=== PATIENT | male | born 1955 | race Caucasian/White ===

== ENCOUNTER 2018-01-17 15:27 | Emergency (ER) | payer BC, OTHER ==
[2018-01-17 15:44] VITALS: BP 151/85; PULSE 79; O2SAT 94
--- NOTE | 2018-01-17 16:11 | ERPHSYRPT ---
- History of Present Illness Time Seen by Provider: 01/17/18 15:54 Source: patient Exam Limitations: clinical condition Patient Subjective Stated Complaint: pt states yesterday he fell about 4 1/2 feet off back of truck and landed on back on hard surface, no loc. Triage Nursing Assessment: pt co pain to left side of head, walked in, alert, resp easy, skin w/d/p, pupils equal and reactive Physician History: PATIENT FELL 4 FEET OFF PLATFORM ONTO LOWER, BACK YESTERDAY AFTER SLIP AND FALL , ALSO STRUCK LEFT SIDE OF HEAD. DENIES LOSS OF CONSCIOUSNESS, NECK PAIN , NAUSEA, DIZZINESS, OR BLURRED VISION. Occurred: yesterday Reason for Fall: slipped Injuries/Pain Location: head, back Loss of Consciousness: no loss of consciousness Quality: aching Severity of Pain-Max: mild Modifying Factors: Improves With: nothing, cold therapy Associated Symptoms (Fall): other (LOW BACK PAIN) Allergies/Adverse Reactions: No Known Drug Allergies Allergy (Verified 01/17/18 15:44) Home Medications: Aspirin 81 gm Chew [Baby Aspirin 81 mg Chew] 81 mg PO DAILY 08/20/16 [ History] Diphenhydramine HCl [Benadryl Allergy] 75 mg PO DAILY 08/20/16 [History] Garlic 1 each PO DAILY 08/20/16 [History] Ibuprofen [IBUPROFEN 400 MG TABLET] 1 - 2 tablet PO Q6-8HPRN PRN 08/20/16 [ History] Losartan/Hydrochlorothiazide [Losartan-Hctz 100-12.5 mg Tab] 1 each PO DAILY 03/31 [History] Lovastatin 20 mg PO DAILY 08/20/16 [History] Melatonin 10 mg PO DAILY 08/20/16 [History] Meloxicam 7.5 mg [Mobic 7.5 MG] 7.5 mg PO BID 08/20/16 [History] [place]-3 Fatty Acids/Fish Oil [Fish Oil 1,000 mg Capsule] 1 ea DAILY 01/17/18 [ History] Trazodone HCl 100 mg DAILY 01/17/18 [History] Hx Influenza Vaccination/Date Given: Yes Hx Pneumococcal Vaccination/Date Given: No Immunizations Up to Date: Yes - Review of Systems Constitutional: No Fever, No Chills Eyes: No Symptoms Ears, Nose, & Throat: No Symptoms Respiratory: No Symptoms, No Cough, No Dyspnea Cardiac: No Symptoms, No Chest Pain, No Edema, No Syncope Abdominal/Gastrointestinal: No Symptoms, No Abdominal Pain, No Nausea, No Vomiting, No Diarrhea Genitourinary Symptoms: No Symptoms, No Dysuria Musculoskeletal: Injury, No Back Pain, No Neck Pain Skin: No Rash Neurological: Headache, No Dizziness, No Focal Weakness, No Sensory Changes Psychological: No Symptoms Endocrine: No Symptoms All Other Systems: Reviewed and Negative - Past Medical History Pertinent Past Medical History: Yes Neurological History: No Pertinent History ENT History: No Pertinent History Cardiac History: High Cholesterol, Hypertension Respiratory History: No Pertinent History Endocrine Medical History: No Pertinent History Musculoskeletal History: Arthritis GI Medical History: No Pertinent History History: No Pertinent History Psycho-Social History: No Pertinent History Male Reproductive Disorders: No Pertinent History - Past Surgical History Past Surgical History: Yes Neuro Surgical History: No Pertinent History Cardiac: No Pertinent History Respiratory: No Pertinent History Gastrointestinal: No Pertinent History Genitourinary: No Pertinent History Musculoskeletal: Other Male Surgical History: No Pertinent History Other Surgical History: shoulder surgery - Social History Smoking Status: Former smoker Exposure to second hand smoke: No Drug Use: none Patient Lives Alone: No - Nursing Vital Signs Nursing Vital Signs: Initial Vital Signs Temperature 98.7 F 01/17/18 15:37 Pulse Rate 79 01/17/18 15:37 Respiratory Rate 16 01/17/18 15:37 Blood Pressure 151/85 01/17/18 15:37 O2 Sat by Pulse Oximetry 94 L 01/17/18 15:37 Pain Scale Pain Intensity 2 - Protem Coma Score Best Eye Response (Rupert): (4) open spontaneously Best Verbal Response (Rupert): (5) oriented Best Motor Response (Rupert): (6) obeys commands Rupert Total: 15 - Physical Exam General Appearance: no apparent distress, alert Head Injury: contusions, swelling, tenderness (3CM X 2.5CM OVER LEFT SUPERIOR OCCIPITAL AREA) Eye Exam: PERRL/EOMI ENT Exam: airway nml Neck Exam: supple, normal inspection, tenderness (MIMIMAL TENDERNESS LEFT POSTERIOR ) Respiratory/Chest Exam: normal breath sounds, No chest tenderness, No respiratory distress Cardiovascular Exam: normal heart sounds, regular rate/rhythm Gastrointestinal Exam: soft, normal bowel sounds, No tenderness, No distention, No guarding, No ecchymosis Back Exam: normal inspection, vertebral tenderness (TENDERNESS LEFT PARASPINAL LUMBAR L-2-L-5, NO PELVIS ECCHYMOSIS) Extremity Exam: normal inspection, normal range of motion, pelvis stable, No deformities Peripheral Pulses: carotid (R): 2+, carotid (L): 2+, femoral (R): 2+, femoral (L ): 2+, dorsalis-pedis (R): 2+ Neurologic Exam: alert, oriented x 3, cooperative, sensation nml, No motor deficits Skin Exam: normal color, warm, dry SpO2 Interpretation: normal SpO2: 94 Oxygen Delivery: Room Air - Radiology Exams L-Spine X-ray Interpretation: Interpreted by me (DEGENERATIVE DISC DISEASE, NARROWING DISC SPACE L-5 TO S-1) - CT Exams Head CT Interpretation: Tele-radiologist Report, No/Intracranial Hemorrhag Cervical Spine CT Interpretation: Tele-radiologist Report, No Fracture Ordered Tests: Active Orders 24 hr Category Date Time Status CERVICAL SPINE WO CONTRAST [CT] Stat Exams 01/17/18 16:49 Taken HEAD WITHOUT CONTRAST [CT] Stat Exams 01/17/18 16:03 Taken LUMBAR COMPLETE (MIN 4 VIEWS) Stat Exams 01/17/18 16:05 Taken - Progress Counseled pt/family regarding: diagnosis, rad results - Departure Time of Disposition: 17:45 Departure Disposition: Home Clinical Impression: OCCIPITAL SCALP CONTUSION, CERVICAL STRAIN, LUMBAR STRAIN Condition: Stable Critical Care Time: No Referrals: SHEMAR CHIANG [Primary Care Provider] - Additional Instructions: TYLENOL OR MOTRIN NEEDED FOR PAIN. APPLY ICE OVER SCALP SWELLING EVERY 4 HOURS, DURATION 30 MINUTES FOR 24 HOURS. CONSULT YOUR PRIMARY CARE PROVIDER FOR FOLLOWUP.
--- NOTE | 2018-01-18 08:41 | XRAY ---
Indication: Pain following fall off truck. Multiple contiguous axial images obtained through the cervical spine. Sagittal and coronal reformatted images obtained. Comparison: None Axial images negative for acute fracture, suspicious bony lesions, or spinal canal stenosis. Mild/moderate C3-C7 degenerative endplate spurring. Sagittal and coronal reformatted images demonstrates lordotic straightening, positional versus paraspinal muscle spasm. C4-C7 degenerative disc space narrowing. No acute compression fracture, subluxation, or jumped facet. Normal-appearing craniocervical junction. Visualized noncontrasted soft tissues demonstrates minimal carotid calcifications. Lung apices clear. CT head reported separately. Impression: 1. Lordotic straightening, positional versus paraspinal spasm. 2. Negative acute fracture/subluxation. 3. Multilevel degenerative changes as detailed. Comment: Preliminary interpretation was made by [facility]. No discrepancy. CT DI 108.27
--- NOTE | 2018-01-18 08:43 | XRAY ---
Indication: Pain following fall off truck. Comparison: None 5 views of the lumbar spine demonstrates 5 lumbar vertebral segments with mild/moderate multilevel degenerative spondylosis greatest at the L5-S1 level. Also minimal dextroscoliosis centered at L2 and mild L4-S1 degenerative facet arthropathy, right greater than left. Minimal T11-L1 anterior wedging either developmental versus old injury. No acute fracture, subluxation, or soft tissue abnormalities. Impression: Nonacute lumbar spine with chronic features.
--- NOTE | 2018-01-18 08:44 | XRAY ---
Indication: Pain following fall off truck. Multiple contiguous axial images obtained through the head without contrast. Comparison: None Small left posterior parietal scalp hematoma near the vertex. Otherwise normal appearing brain parenchyma, ventricles, and bony calvarium. Visualized paranasal sinuses and mastoid air cells are clear. Impression: Left parietal scalp hematoma. No underlying fracture or acute intracranial abnormalities. Comment: Preliminary interpretation was made by [facility]. No discrepancy. CT DI 50.97
== END 2018-01-17 18:14 | disposition home or self-care (01) ==
LOC: ED 15:27
DX: S00.03XA Contusion of scalp, initial encounter (principal); S39.012A Strain of muscle, fascia and tendon of lower back, initial encounter; S16.1XXA Strain of muscle, fascia and tendon at neck level, initial encounter; W17.89XA Other fall from one level to another, initial encounter
CPT/HCPCS: 70450; 72110; 72125; 99284

== ENCOUNTER 2019-07-08 19:05 | Emergency (ER) | payer BC ==
--- NOTE | 2019-07-08 19:15 | ERPHSYRPT ---
- History of Present Illness Time Seen by Provider: 07/08/19 19:15 Historian: patient, family Exam Limitations: no limitations Physician History: 63 y/o white male presents central substernal cp. pain is sharp and nonradiating. pt has h/o pleurisy. family h/o cardiac issues but he does not. no cough. pt states gallbladder in place. no soa. no abd pain. had dry heaves. no diarrhea. Timing/Duration: today, sudden, worse Quality: sharpness, stabbing Location: substernal, central Chest Pain Radiation: no radiation Severity of Pain-Max: moderate Severity of Pain-Current: moderate Associated Symptoms: nausea, vomiting, No palpitations, No abdominal pain, No hurts to breathe Prior Chest Pain/Cardiac Workup: no prior cardiac workup Nitro Today/Relief: no nitro taken today Aspirin Treatment Today: 81 mg x 1 Allergies/Adverse Reactions: No Known Drug Allergies Allergy (Verified 07/08/19 19:15) Home Medications: Aspirin 81 gm Chew [Baby Aspirin 81 mg Chew] 81 mg PO DAILY 08/20/16 [ History] Diphenhydramine HCl [Benadryl Allergy] 75 mg PO DAILY 08/20/16 [History] Garlic 1 each PO DAILY 08/20/16 [History] Ibuprofen [IBUPROFEN 400 MG TABLET] 1 - 2 tablet PO Q6-8HPRN PRN 08/20/16 [ History] Losartan/Hydrochlorothiazide [Losartan-Hctz 100-12.5 mg Tab] 1 each PO DAILY 03/31 [History] Lovastatin 20 mg PO DAILY 08/20/16 [History] Melatonin 10 mg PO DAILY 08/20/16 [History] Meloxicam 7.5 mg [Mobic 7.5 MG] 7.5 mg PO BID 08/20/16 [History] [place]-3 Fatty Acids/Fish Oil [Fish Oil 1,000 mg Capsule] 1 ea DAILY 01/17/18 [ History] Trazodone HCl 100 mg DAILY 01/17/18 [History] Hx Influenza Vaccination/Date Given: Yes Hx Pneumococcal Vaccination/Date Given: No - Review of Systems Constitutional: No Symptoms Eyes: No Symptoms Ears, Nose, & Throat: No Symptoms Respiratory: No Symptoms Cardiac: Chest Pain Abdominal/Gastrointestinal: Nausea, Vomiting, No Abdominal Pain, No Diarrhea Genitourinary Symptoms: No Symptoms Musculoskeletal: No Symptoms Skin: No Symptoms Neurological: No Symptoms Psychological: No Symptoms Endocrine: No Symptoms Hematologic/Lymphatic: No Symptoms Immunological/Allergic: No Symptoms All Other Systems: Reviewed and Negative - Past Medical History Pertinent Past Medical History: Yes Neurological History: No Pertinent History ENT History: No Pertinent History Cardiac History: High Cholesterol, Hypertension Respiratory History: No Pertinent History Endocrine Medical History: No Pertinent History Musculoskeletal History: Arthritis GI Medical History: No Pertinent History History: No Pertinent History Psycho-Social History: No Pertinent History Male Reproductive Disorders: No Pertinent History - Past Surgical History Past Surgical History: Yes Neuro Surgical History: No Pertinent History Cardiac: No Pertinent History Respiratory: No Pertinent History Gastrointestinal: No Pertinent History Genitourinary: No Pertinent History Musculoskeletal: Other Male Surgical History: No Pertinent History Other Surgical History: shoulder surgery - Social History Smoking Status: Former smoker Exposure to second hand smoke: No Drug Use: none Patient Lives Alone: No - Nursing Vital Signs Nursing Vital Signs: Initial Vital Signs Temperature 98.2 F 07/08/19 19:16 Pulse Rate 72 07/08/19 19:16 Respiratory Rate 20 07/08/19 19:16 Blood Pressure 166/84 07/08/19 19:16 O2 Sat by Pulse Oximetry 98 07/08/19 19:16 Pain Scale Pain Intensity 8 - Physical Exam General Appearance: mild distress, alert, anxiety Eye Exam: PERRL/EOMI, eyes nml inspection Ears, Nose, Throat Exam: normal ENT inspection, moist mucous membranes Neck Exam: normal inspection, non-tender, supple, full range of motion Respiratory Exam: normal breath sounds, chest tenderness, lungs clear, airway intact, No respiratory distress Cardiovascular Exam: regular rate/rhythm, normal heart sounds, normal peripheral pulses Gastrointestinal/Abdomen Exam: soft, normal bowel sounds, No tenderness Rectal Exam: not done Back Exam: normal inspection, normal range of motion, No CVA tenderness, No vertebral tenderness Extremity Exam: normal inspection, normal range of motion, pelvis stable Neurologic Exam: alert, oriented x 3, cooperative, dry food products mixer II-XII nml as tested Skin Exam: normal color, warm, dry Lymphatic Exam: No adenopathy SpO2 Interpretation: normal O2 Delivery: Room Air - Course Nursing assessment & vital signs reviewed: Yes EKG Interpreted by Me: RATE (67), Sinus Rhythm, NORMAL AXIS, NORMAL INTERVALS, NORMAL QRS, Non-specific ST Changes, Other (no comparison ekg) Ordered Tests: Active Orders 24 hr Category Date Time Status Economics Professor STAT Care 07/08/19 19:16 Active EKG-ER Only STAT Care 07/08/19 19:15 Active IV Insertion STAT Care 07/08/19 19:15 Active Pulse Oximetry (ED) STAT Care 07/08/19 19:15 Active CHEST 1 VIEW (PORTABLE) Stat Exams 07/08/19 19:16 Taken CHEST WITH CONTRAST [CT] Stat Exams 07/08/19 20:22 Taken BLOOD CULTURE Stat Lab 07/08/19 21:42 Received CBC W DIFF Stat Lab 07/08/19 19:43 Completed CMP Stat Lab 07/08/19 19:43 Completed D-DIMER QUANTITATION Stat Lab 07/08/19 19:43 Completed NT PRO BNP Stat Lab 07/08/19 19:43 Completed PROTIME WITH INR Stat Lab 07/08/19 19:43 Completed TROPONIN Q3H Lab 07/08/19 19:43 Completed TROPONIN Q3H Lab 07/08/19 21:42 Completed TROPONIN Q3H Lab 07/09/19 02:19 Completed TROPONIN Q3H Lab 07/09/19 04:30 Ordered TROPONIN Q3H Lab 07/09/19 07:30 Ordered Medication Summary Generic Name Dose Route Start Last Admin Trade Name Freq PRN Reason Stop Dose Admin Hydrocodone Bitart/Acetaminophen 2 tab 07/09/19 02:56 [place] 5/325 Mg PO 07/09/19 02:57 SENT HOME W/ PATIENT ONE Discontinued Medications Generic Name Dose Route Start Last Admin Trade Name Freq PRN Reason Stop Dose Admin Enoxaparin Sodium 80 mg 07/09/19 02:55 Enoxaparin Sodium SQ 07/09/19 02:56 STAT ONE Sodium Chloride 1,000 mls @ 999 mls/hr 07/09/19 00:14 07/09/19 00:28 Sodium Chloride 0.9% 1000 Ml IV 07/09/19 01:14 999 mls/hr .Q1H1M STA Administration Sodium Chloride Confirm 07/09/19 00:24 Sodium Chloride 0.9% 1000 Ml Administered 07/09/19 00:25 Dose 1,000 mls @ ud .ROUTE .STK-MED ONE Morphine Sulfate 4 mg 07/08/19 20:18 07/08/19 20:46 Morphine Sulfate 4 Mg Inj IV 07/08/19 20:19 4 mg STAT ONE Administration Morphine Sulfate Confirm 07/08/19 20:34 Morphine Sulfate 4 Mg Inj Administered 07/08/19 20:35 Dose 4 mg .ROUTE .STK-MED ONE Morphine Sulfate 4 mg 07/09/19 00:06 07/09/19 00:26 Morphine Sulfate 4 Mg Inj IV 07/09/19 00:07 4 mg STAT ONE Administration Morphine Sulfate Confirm 07/09/19 00:24 Morphine Sulfate 4 Mg Inj Administered 07/09/19 00:25 Dose 4 mg .ROUTE .STK-MED ONE Ondansetron HCl 4 mg 07/08/19 20:19 07/08/19 20:47 Zofran 4 Mg/2 Ml Vial IV 07/08/19 20:20 4 mg STAT ONE Administration Ondansetron HCl Confirm 07/08/19 20:33 Zofran 4 Mg/2 Ml Vial Administered 07/08/19 20:34 Dose 4 mg .ROUTE .STK-MED ONE Potassium Chloride 10 meq 07/08/19 20:18 07/08/19 20:47 Klor Con 10 Meq PO 07/08/19 20:19 10 meq STAT ONE Administration Potassium Chloride Confirm 07/08/19 20:33 Klor Con 10 Meq Administered 07/08/19 20:34 Dose 10 meq PO .STK-MED ONE Lab/Rad Data: Laboratory Result Diagrams 07/08/19 19:43 07/08/19 19:43 Laboratory Results 07/09/19 07/08/19 07/08/19 Range/Units 02:19 21:42 19:43 WBC (4.0-10.5) K/mm3 RBC (4.1-5.6) M/mm3 Hgb (12.5-18.0) gm/dl Hct (42-50) % MCV (78-100) fl MCH (26-32) pg MCHC (32-36) g/dl RDW (11.5-14.0) % Plt Count (150-450) K/mm3 MPV (6-9.5) fl Gran % (36.0-66.0) % Eos # (Auto) (0-0.5) Absolute Lymphs (auto) (1.0-4.6) Absolute Monos (auto) (0.0-1.3) Lymphocytes % (24.0-44.0) % Monocytes % (0.0-12.0) % Eosinophils % (0.00-5.0) % Basophils % (0.0-0.4) % Absolute Granulocytes (1.4-6.9) Basophils # (0-0.4) PT (8.83-12.87) SECONDS INR (0.8-3.0) D-Dimer (215-500) ng/mL Sodium (137-145) mmol/L Potassium (3.5-5.1) mmol/L Chloride (98-107) mmol/L Carbon Dioxide (22-30) mmol/L Anion Gap (5-15) MEQ/L BUN (9-20) mg/dL Creatinine (0.66-1.25) mg/dL Estimated GFR ML/MIN Glucose (74-106) mg/dL Calcium (8.4-10.2) mg/dL Total Bilirubin (0.2-1.3) mg/dL AST (17-59) U/L ALT (0-50) U/L Alkaline Phosphatase (38-126) U/L Troponin I < 0.012 < 0.012 < 0.012 (0.000-0.034) ng/mL NT-Pro-B Natriuret Pep (0-900) pg/mL Serum Total Protein (6.3-8.2) g/dL Albumin (3.5-5.0) g/dL 07/08/19 07/08/19 07/08/19 Range/Units 19:43 19:43 19:43 WBC 15.6 H (4.0-10.5) K/mm3 RBC 4.78 (4.1-5.6) M/mm3 Hgb 13.9 (12.5-18.0) gm/dl Hct 40.4 L (42-50) % MCV 84.5 (78-100) fl MCH 29.1 (26-32) pg MCHC 34.4 (32-36) g/dl RDW 13.3 (11.5-14.0) % Plt Count 303 (150-450) K/mm3 MPV 10.8 H (6-9.5) fl Gran % 78.8 H (36.0-66.0) % Eos # (Auto) 0.21 (0-0.5) Absolute Lymphs (auto) 2.28 (1.0-4.6) Absolute Monos (auto) 0.75 (0.0-1.3) Lymphocytes % 14.7 L (24.0-44.0) % Monocytes % 4.8 (0.0-12.0) % Eosinophils % 1.4 (0.00-5.0) % Basophils % 0.3 (0.0-0.4) % Absolute Granulocytes 12.27 H (1.4-6.9) Basophils # 0.04 (0-0.4) PT 12.0 (8.83-12.87) SECONDS INR 1.06 (0.8-3.0) D-Dimer 654 H* (215-500) ng/mL Sodium 141 (137-145) mmol/L Potassium 3.4 L (3.5-5.1) mmol/L Chloride 102 (98-107) mmol/L Carbon Dioxide 28 (22-30) mmol/L Anion Gap 14.9 (5-15) MEQ/L BUN 23 H (9-20) mg/dL Creatinine 0.93 (0.66-1.25) mg/dL Estimated GFR > 60.0 ML/MIN Glucose 117 H (74-106) mg/dL Calcium 10.2 (8.4-10.2) mg/dL Total Bilirubin 0.50 (0.2-1.3) mg/dL AST 23 (17-59) U/L ALT 19 (0-50) U/L Alkaline Phosphatase 64 (38-126) U/L Troponin I (0.000-0.034) ng/mL NT-Pro-B Natriuret Pep 15.8 (0-900) pg/mL Serum Total Protein 7.6 (6.3-8.2) g/dL Albumin 4.6 (3.5-5.0) g/dL - Progress Progress: improved Air Movement: good Progress Note: 07/09/19 00:08 pt had initial cta chest. no large central pulmonary emboli present. however, radiologist could not visualize segmental and subsegmental vessels well. [facility] radiology recommended repeat cta with different parameters. i followed the radiologist recommendation as well as only an additional 70ml of iv contrast so as to not go above the recommended 150ml iv contrast injection. [employer] technician took pt back for repeat cta chest but appears to have had a mechanical malfunction. pt did not receive total 70ml iv contrast. will await cta chest [facility]rad reading. if still nondiagnostic, will give lovenox subq for next 36 hours and then repeat cta chest then. 07/09/19 01:05 pt states cp is improving 07/09/19 02:52 pt has improved. still unable to determine presence or absence of segmental or subsegmental pulm emboli. will cover with lovenox and repeat cta thursday. plan d/ w pt and he agrees. pt received less than 120ml total of iv contrast per [employer] 07/09/19 02:58 Blood Culture(s) Obtained: Yes Antibiotics given: No Counseled pt/family regarding: lab results, diagnosis, need for follow-up, rad results - Departure Departure Disposition: Home Clinical Impression: Chest pain, Elevated d-dimer Condition: Stable Critical Care Time: No Referrals: SHEMAR CHIANG [ACTIVE STAFF] - Additional Instructions: give lovenox every 12 hours as discussed. return thursday for repeat cta chest,sooner if symptoms worsen Prescriptions: Hydrocodone/APAP 5/325 [[place] 5/325 mg] 1 each PO Q6H PRN PRN #10 tablet MDD 4 PRN Reason: Pain Enoxaparin Sodium [Lovenox] 80 mg SQ Q12H #2 syringe
[2019-07-08 19:57] LABS: BASOPHIL % 0.3 % (0.0-0.4); Basophil (Absolute #) 0.04 (0-0.4); Eosinophil % 1.4 % (0.00-5.0); Eosinophil (Absolute #) 0.21 (0-0.5); Granulocyte Absolute (ANC) 12.27 (1.4-6.9); Granulocytes % 78.8 % (36.0-66.0); Hematocrit 40.4 % (42-50); Hemoglobin 13.9 gm/dl (12.5-18.0); Lymphocyte (Absolute #) 2.28 (1.0-4.6); Lymphocytes % 14.7 % (24.0-44.0); Mean Cell Volume 84.5 fl (78-100); Mean Corpuscular Hemoglobin 29.1 pg (26-32); Mean Corpuscular Hgb Concent. 34.4 g/dl (32-36); Mean Platelet Volume 10.8 fl (6-9.5); Monocyte (Absolute #) 0.75 (0.0-1.3); Monocytes % 4.8 % (0.0-12.0); Platelet Count 303 K/mm3 (150-450); Red Blood Count 4.78 M/mm3 (4.1-5.6); Red Cell Distribution Width 13.3 % (11.5-14.0); White Blood Count 15.6 K/mm3 (4.0-10.5)
[2019-07-08 20:10] LABS: INR 1.06 (0.8-3.0)
[2019-07-08 20:12] LABS: ALBUMIN 4.6 g/dL (3.5-5.0); ALKALINE PHOSPHATASE 64 U/L (38-126); ANION GAP 14.9 MEQ/L (5-15); BLOOD UREA NITROGEN 23 mg/dL (9-20); CHLORIDE 102 mmol/L (98-107); Calcium 10.2 mg/dL (8.4-10.2); Carbon Dioxide 28 mmol/L (22-30); Creatinine 1 0.93 mg/dL (0.66-1.25); Glucose 117 mg/dL (74-106); NT PRO BNP 15.8 pg/mL (0-900); Potassium 3.4 mmol/L (3.5-5.1); SGOT/AST 23 U/L (17-59); SGPT/ALT 19 U/L (0-50); SODIUM 141 mmol/L (137-145); Total Protein 7.6 g/dL (6.3-8.2)
[2019-07-08] MEDS ORDERED: Klor Con 10 MEQ PO ONE ×2 (20:18→20:33)
[2019-07-08] MEDS ORDERED: MORPHINE SULFATE 4 MG INJ IV ONE (20:18)
[2019-07-08] MEDS ORDERED: Zofran 4 MG/2 ML VIAL IV ONE (20:19)
[2019-07-08] MEDS ORDERED: Zofran 4 MG/2 ML VIAL ONE (20:33)
[2019-07-08] MEDS ORDERED: MORPHINE SULFATE 4 MG INJ ONE (20:34)
[2019-07-09] MEDS ORDERED: MORPHINE SULFATE 4 MG INJ IV ONE (00:06)
[2019-07-09] MEDS ORDERED: Sodium Chloride 0.9% 1000 ML 1,000 ML IV STA (00:14)
[2019-07-09] MEDS ORDERED: Sodium Chloride 0.9% 1000 ML 1,000 ML ONE (00:24)
[2019-07-09] MEDS ORDERED: MORPHINE SULFATE 4 MG INJ ONE (00:24)
[2019-07-09] MEDS ORDERED: ENOXAPARIN SODIUM SQ ONE ×2 (02:55→03:21)
[2019-07-09] MEDS ORDERED: NORCO 5/325 MG PO ONE (02:56)
[2019-07-09] MEDS ORDERED: NORCO 5/325 MG ONE (03:20)
[2019-07-09] MEDS ORDERED: Levofloxacin 250MG Tablet PO ONE (03:23)
[2019-07-09] MEDS ORDERED: Hydromorphone 1 mg/ml Ampule ONE (03:26)
[2019-07-09] MEDS ORDERED: Hydromorphone 1 mg/ml Ampule IV ONE (04:12)
[2019-07-09] MEDS ORDERED: Levofloxacin 250MG Tablet ONE (04:16)
[2019-07-09 05:30] VITALS: BP 135/74; PULSE 82; O2SAT 95
--- NOTE | 2019-07-09 11:21 | XRAY ---
Indication: Chest/epigastric pain. Elevated d-dimer. Multiple contiguous axial images obtained through the chest using Isovue-300 contrast and using PE protocol. Due to technical injector problems, a total of 114 cc was used. Comparison: None There is adequate opacification of the pulmonary arteries to include the lobar branches. No filling defect or pulmonary embolus. Heart is not enlarged. Aorta is normal in course and caliber. Subcarinal calcified node. No pathologic mediastinal/hilar lymphadenopathy. Lungs are inflated with minimal pulmonary emphysema, minimal bibasilar fibrosis/scarring, and tiny right upper/right lower lobe lobe calcified granulomas. No suspicious pulmonary mass, infiltrate, or effusion. Bony thorax intact with mild degenerative changes throughout the spine. Limited upper abdomen demonstrates 2 left lobe hepatic cysts, largest 6 mm. Gallbladder moderately distended with tiny stone near the neck of the gallbladder. Impression: 1. Negative pulmonary embolus. 2. Pulmonary emphysema and evidence for old granulomatous disease. No acute cardiopulmonary abnormalities. 3. Incidental tiny hepatic cyst and distended gallbladder with tiny stone. Comment: Preliminary interpretation was made by [facility] who does not report incidental liver and gallbladder findings. [facility] also reports "suboptimal opacification" of the pulmonary arteries which I disagree. CTDI 23.69
--- NOTE | 2019-07-09 11:21 | XRAY ---
Indication: Chest pain and nausea. Comparison: None Portable chest is clear. Heart is not enlarged. Bony thorax intact with mild degenerative changes. Impression: Nonacute chest.
== END 2019-07-09 05:40 | disposition home or self-care (01) ==
LOC: ED 19:05
DX: R07.9 Chest pain, unspecified (principal); R79.89 Other specified abnormal findings of blood chemistry
CPT/HCPCS: 36000; 36415; 71045; 71260; 80053; 83880; 84484; 85025; 85379; 85610; 87040; 93005; 93041; 94760; 96360; 96372; 96374; 96375; 96376; 99285; J1170; J1650; J2270; J2405; A9270-GY

== ENCOUNTER 2019-07-11 14:13 | Inpatient (IN) | payer BC ==
[2019-07-11] MEDS ORDERED: Sodium Chloride 0.9% 1000 ML 1,000 ML IV STA ×2 (14:15→16:25)
--- NOTE | 2019-07-11 14:15 | ERPHSYRPT ---
- History of Present Illness Time Seen by Provider: 07/11/19 14:15 Historian: patient, family Exam Limitations: no limitations Physician History: 63 y/o white male well known to me. pt seen on 07/08/19 with chest and epigastric abd pain. thorough work up revealed no acute mi and no pulmonary emboli. ? right lower lobe infiltrate. pt given rx for antibx. pt seen by FABIOLA Mcgee today. Pts sx have changed to right upper quad abd pain. pt sent here for evaluation of his abd pain. no diarrhea, mild soa because hurts to take a deep breath. Timing/Duration: day(s) (2), worse Activities at Onset: none Quality: sharpness, stabbing Abdominal Pain Onset Location: RUQ Pain Radiation: back Severity of Pain-Max: moderate Severity of Pain-Current: moderate Modifying Factors: Improves With: breathing (deeply) Associated Symptoms: nausea Previous symptoms: different symptoms, recently seen, recently treated Allergies/Adverse Reactions: acetaminophen [From Percocet] Adverse Reaction (Intermediate, Verified 07/11/19 14:32) hallucinations hydrocodone [From [place]] Adverse Reaction (Intermediate, Verified 07/11/19 14:32 ) hallucinations oxycodone [From Percocet] Adverse Reaction (Intermediate, Verified 07/11/19 14: 32) hallucinations Home Medications: Aspirin 81 gm Chew [Baby Aspirin 81 mg Chew] 81 mg PO DAILY 08/20/16 [ History] Diphenhydramine HCl [Benadryl Allergy] 75 mg PO DAILY 08/20/16 [History] Garlic 1 each PO DAILY 08/20/16 [History] Ibuprofen [IBUPROFEN 400 MG TABLET] 1 - 2 tablet PO Q6-8HPRN PRN 08/20/16 [ History] Losartan/Hydrochlorothiazide [Losartan-Hctz 100-12.5 mg Tab] 1 each PO DAILY 03/31 [History] Lovastatin 20 mg PO DAILY 08/20/16 [History] Melatonin 10 mg PO DAILY 08/20/16 [History] [place]-3 Fatty Acids/Fish Oil [Fish Oil 1,000 mg Capsule] 1 ea DAILY 01/17/18 [ History] Trazodone HCl 100 mg DAILY 01/17/18 [History] Hx Influenza Vaccination/Date Given: Yes Hx Pneumococcal Vaccination/Date Given: No - Review of Systems Constitutional: No Symptoms Eyes: No Symptoms Ears, Nose, & Throat: No Symptoms Respiratory: Dyspnea Cardiac: No Symptoms Abdominal/Gastrointestinal: Abdominal Pain (ruq), Nausea Genitourinary Symptoms: No Symptoms Musculoskeletal: No Symptoms Skin: No Symptoms Neurological: No Symptoms Psychological: No Symptoms Endocrine: No Symptoms Hematologic/Lymphatic: No Symptoms Immunological/Allergic: No Symptoms All Other Systems: Reviewed and Negative - Past Medical History Pertinent Past Medical History: Yes Neurological History: No Pertinent History ENT History: No Pertinent History Cardiac History: High Cholesterol, Hypertension Respiratory History: No Pertinent History Endocrine Medical History: No Pertinent History Musculoskeletal History: Arthritis GI Medical History: No Pertinent History History: No Pertinent History Psycho-Social History: No Pertinent History Male Reproductive Disorders: No Pertinent History - Past Surgical History Past Surgical History: Yes Neuro Surgical History: No Pertinent History Cardiac: No Pertinent History Respiratory: No Pertinent History Gastrointestinal: No Pertinent History Genitourinary: No Pertinent History Musculoskeletal: Other Male Surgical History: No Pertinent History Other Surgical History: shoulder surgery - Social History Smoking Status: Former smoker Exposure to second hand smoke: No Drug Use: none Patient Lives Alone: No - Nursing Vital Signs Nursing Vital Signs: Initial Vital Signs Temperature 99.3 F 07/11/19 14:22 Pulse Rate 104 H 07/11/19 14:22 Respiratory Rate 20 07/11/19 14:22 Blood Pressure 113/69 07/11/19 14:22 Pain Scale Pain Intensity 4 - Physical Exam General Appearance: mild distress, alert, anxiety Eye Exam: PERRL/EOMI, eyes nml inspection Ears, Nose, Throat Exam: normal ENT inspection, moist mucous membranes Neck Exam: normal inspection, non-tender, supple, full range of motion Respiratory Exam: normal breath sounds, lungs clear, airway intact, No chest tenderness, No respiratory distress Cardiovascular Exam: tachycardia Gastrointestinal/Abdomen Exam: soft, normal bowel sounds, tenderness (ruq), guarding (ruq), No rebound Rectal Exam: not done Back Exam: normal inspection, normal range of motion, No CVA tenderness, No vertebral tenderness Extremity Exam: normal inspection, normal range of motion, pelvis stable Neurologic Exam: alert, oriented x 3, cooperative, behavioral health assistant II-XII nml as tested Skin Exam: normal color, warm Lymphatic Exam: No adenopathy SpO2 Interpretation: normal O2 Delivery: Room Air - Course Nursing assessment & vital signs reviewed: Yes EKG Interpreted by Me: RATE (132), A-fib (a flutter. pt with sig ruq abd pain.) , NORMAL AXIS, Other (comoparison ekg 07/08/19) Ordered Tests: Active Orders 24 hr Category Date Time Status EKG-ER Only STAT Care 07/11/19 14:15 Active IV Insertion STAT Care 07/11/19 14:15 Active ABDOMEN AND PELVIS W/0 CONTRAS [CT] Stat Exams 07/11/19 14:16 Completed CHEST 1 VIEW (PORTABLE) Stat Exams 07/11/19 14:24 Completed GALLBLADDER [US] Stat Exams 07/11/19 14:23 Taken AMYLASE Stat Lab 07/11/19 14:30 Completed CBC W DIFF Stat Lab 07/11/19 14:30 Completed CMP Stat Lab 07/11/19 14:30 Completed LIPASE Stat Lab 07/11/19 14:30 Completed Lactic Acid Stat Lab 07/11/19 14:34 Results TROPONIN Q3H Lab 07/11/19 14:30 Completed TROPONIN Q3H Lab 07/11/19 17:30 Ordered TROPONIN Q3H Lab 07/11/19 20:30 Ordered TROPONIN Q3H Lab 07/11/19 23:30 Ordered TROPONIN Q3H Lab 07/12/19 02:30 Ordered Medication Summary Discontinued Medications Generic Name Dose Route Start Last Admin Trade Name Herbertq PRN Reason Stop Dose Admin Hydromorphone HCl 1 mg 07/11/19 14:22 07/11/19 15:44 Hydromorphone 1 Mg/Ml Ampule IV 07/11/19 14:23 1 mg STAT ONE Administration Hydromorphone HCl Confirm 07/11/19 15:02 Hydromorphone 1 Mg/Ml Ampule Administered 07/11/19 15:03 Dose 1 mg .ROUTE .STK-MED ONE Sodium Chloride 1,000 mls @ 999 mls/hr 07/11/19 14:15 07/11/19 15:44 Sodium Chloride 0.9% 1000 Ml IV 07/11/19 15:15 999 mls/hr .Q1H1M STA Administration Sodium Chloride Confirm 07/11/19 15:02 Sodium Chloride 0.9% 1000 Ml Administered 07/11/19 15:03 Dose 1,000 mls @ ud .ROUTE .STK-MED ONE Ondansetron HCl 4 mg 07/11/19 14:22 07/11/19 15:44 Zofran 4 Mg/2 Ml Vial IV 07/11/19 14:23 4 mg STAT ONE Administration Ondansetron HCl Confirm 07/11/19 15:02 Zofran 4 Mg/2 Ml Vial Administered 07/11/19 15:03 Dose 4 mg .ROUTE .STK-MED ONE Lab/Rad Data: Laboratory Result Diagrams 07/11/19 14:30 07/11/19 14:30 Laboratory Results 07/11/19 07/11/19 07/11/19 Range/Units 14:34 14:30 14:30 WBC (4.0-10.5) K/mm3 RBC (4.1-5.6) M/mm3 Hgb (12.5-18.0) gm/dl Hct (42-50) % MCV (78-100) fl MCH (26-32) pg MCHC (32-36) g/dl RDW (11.5-14.0) % Plt Count (150-450) K/mm3 MPV (6-9.5) fl Gran % (36.0-66.0) % Eos # (Auto) (0-0.5) Absolute Lymphs (auto) (1.0-4.6) Absolute Monos (auto) (0.0-1.3) Lymphocytes % (24.0-44.0) % Monocytes % (0.0-12.0) % Eosinophils % (0.00-5.0) % Basophils % (0.0-0.4) % Absolute Granulocytes (1.4-6.9) Basophils # (0-0.4) Sodium 133 L (137-145) mmol/L Chloride 97 L (98-107) mmol/L Carbon Dioxide 25 (22-30) mmol/L Anion Gap 16.0 H (5-15) MEQ/L BUN 39 H (9-20) mg/dL Creatinine 1.35 H (0.66-1.25) mg/dL Estimated GFR 56.7 ML/MIN Glucose 126 H (74-106) mg/dL Lactic Acid 2.2 H (0.4-2.0) Calcium 9.6 (8.4-10.2) mg/dL Total Bilirubin 1.40 H (0.2-1.3) mg/dL AST 39 (17-59) U/L ALT 31 (0-50) U/L Alkaline Phosphatase 73 (38-126) U/L Troponin I < 0.012 (0.000-0.034) ng/mL Serum Total Protein 7.9 (6.3-8.2) g/dL Albumin 4.1 (3.5-5.0) g/dL Amylase 45 (30-110) U/L Lipase 20 L (23-300) U/L 07/11/19 Range/Units 14:30 WBC 20.1 H (4.0-10.5) K/mm3 RBC 4.81 (4.1-5.6) M/mm3 Hgb 14.1 (12.5-18.0) gm/dl Hct 40.0 L (42-50) % MCV 83.2 (78-100) fl MCH 29.3 (26-32) pg MCHC 35.3 (32-36) g/dl RDW 13.8 (11.5-14.0) % Plt Count 219 (150-450) K/mm3 MPV 11.0 H (6-9.5) fl Gran % 88.9 H (36.0-66.0) % Eos # (Auto) 0.08 (0-0.5) Absolute Lymphs (auto) 1.10 (1.0-4.6) Absolute Monos (auto) 1.01 (0.0-1.3) Lymphocytes % 5.5 L (24.0-44.0) % Monocytes % 5.0 (0.0-12.0) % Eosinophils % 0.4 (0.00-5.0) % Basophils % 0.2 (0.0-0.4) % Absolute Granulocytes 17.88 H (1.4-6.9) Basophils # 0.05 (0-0.4) Sodium (137-145) mmol/L Chloride (98-107) mmol/L Carbon Dioxide (22-30) mmol/L Anion Gap (5-15) MEQ/L BUN (9-20) mg/dL Creatinine (0.66-1.25) mg/dL Estimated GFR ML/MIN Glucose (74-106) mg/dL Lactic Acid (0.4-2.0) Calcium (8.4-10.2) mg/dL Total Bilirubin (0.2-1.3) mg/dL AST (17-59) U/L ALT (0-50) U/L Alkaline Phosphatase (38-126) U/L Troponin I (0.000-0.034) ng/mL Serum Total Protein (6.3-8.2) g/dL Albumin (3.5-5.0) g/dL Amylase (30-110) U/L Lipase (23-300) U/L - Progress Progress: improved, pain not gone completely, re-examined Progress Note: 07/11/19 16:08 cxr-bibasilar atelectasis; small bibasilar pleural effusions. ct abd/pelvis-acute cholecystitis. 07/11/19 16:[address] gutierrez. i reviewed pt hx, condition, lab,ekg and ct scan abd/ pelvis and cxr with him. called dr. olivia lyman, [facility] surgery for consultation. spoke with his nurse juliano. dr. lyman in OR at [facility]. i gave her the pts hx, labs and ct findings. Discussed with .: Yasmine Holder Will see patient in: hospital (full admit) Counseled pt/family regarding: lab results, diagnosis, need for follow-up, rad results - Departure Departure Disposition: In-patient Admission Clinical Impression: Acute cholecystitis Condition: Stable Critical Care Time: No Referrals: Provider,Unknown [Primary Care Provider] -
[2019-07-11] MEDS ORDERED: Hydromorphone 1 mg/ml Ampule IV ONE (14:22)
[2019-07-11] MEDS ORDERED: Zofran 4 MG/2 ML VIAL IV ONE (14:22)
[2019-07-11 14:37] LABS: BASOPHIL % 0.2 % (0.0-0.4); Basophil (Absolute #) 0.05 (0-0.4); Eosinophil % 0.4 % (0.00-5.0); Eosinophil (Absolute #) 0.08 (0-0.5); Granulocyte Absolute (ANC) 17.88 (1.4-6.9); Granulocytes % 88.9 % (36.0-66.0); Hemoglobin 14.1 gm/dl (12.5-18.0); Lymphocytes % 5.5 % (24.0-44.0); Mean Cell Volume 83.2 fl (78-100); Mean Corpuscular Hemoglobin 29.3 pg (26-32); Mean Corpuscular Hgb Concent. 35.3 g/dl (32-36); Monocyte (Absolute #) 1.01 (0.0-1.3); Platelet Count 219 K/mm3 (150-450); Red Blood Count 4.81 M/mm3 (4.1-5.6); Red Cell Distribution Width 13.8 % (11.5-14.0); White Blood Count 20.1 K/mm3 (4.0-10.5)
[2019-07-11 14:41] LABS: Lactic Acid 2.2 (0.4-2.0)
[2019-07-11] MEDS ORDERED: Zofran 4 MG/2 ML VIAL ONE (15:02)
[2019-07-11] MEDS ORDERED: Sodium Chloride 0.9% 1000 ML 1,000 ML ONE ×2 (15:02→16:29)
[2019-07-11] MEDS ORDERED: Hydromorphone 1 mg/ml Ampule ONE (15:02)
[2019-07-11 15:07] LABS: ALBUMIN 4.1 g/dL (3.5-5.0); BILIRUBIN,TOTAL 1.4 mg/dL (0.2-1.3); Calcium 9.6 mg/dL (8.4-10.2); Creatinine 1 1.35 mg/dL (0.66-1.25); Total Protein 7.9 g/dL (6.3-8.2)
--- NOTE | 2019-07-11 15:15 | XRAY ---
Indication: Right upper quadrant abdomen pain. Comparison: July 08, 2019. Portable chest demonstrates new small bibasilar effusions with adjacent atelectasis Heart is not enlarged for AP portable technique. Bony thorax intact.
--- NOTE | 2019-07-11 15:31 | XRAY ---
Indication: Epigastric pain. Multiple contiguous axial images obtained through the abdomen and pelvis without contrast as ordered. Comparison: None Lung bases demonstrate near-complete right lower lobe and lesser degree left lower lobe atelectasis with small right effusion. Tiny bibasilar, right infrahilar, and subcarinal calcified granulomas. Heart is not enlarged. Noncontrasted stomach and bowel loops appear nonobstructed. Normal appendix. Scattered descending and sigmoid diverticulosis. Gallbladder is distended with a few tiny gallstones, abnormal wall thickening, stranding, and pericholecystic fluid favoring acute cholecystitis. Remaining liver, pancreas, spleen, adrenal glands, kidneys, ureters, and bladder appear unremarkable for noncontrast exam. Mild aortoiliac calcifications without AAA. Osseous structures intact with mild/moderate degenerative changes throughout the thoracolumbar spine. Impression: 1. Abnormal gallbladder as detailed favoring acute cholecystitis. 2. Incidental colonic diverticulosis without diverticulitis and evidence old granulomatous disease. 3. Bilateral lower lobe atelectasis, right greater than left and small right effusion. CT DI 23.64
[2019-07-11] MEDS ORDERED: INTEGRILIN IV ONE (16:25)
--- NOTE | 2019-07-11 16:29 | XRAY ---
Indication: Right upper quadrant pain. Two-dimensional gallbladder sonogram performed. Comparison: None Gallbladder normally distended with tiny sub-5 mm gallstone. Gallbladder wall thickness is 3 mm. No pericholecystic fluid. Common bile duct measures 4 mm. No intrahepatic biliary distention. Pancreas obscured due to overlying bowel gas. Remaining visualized portions of the liver and right kidney appear sonographically unremarkable. Right kidney measures 10.9 cm in length. No ascites. Impression: 1. Tiny cholelithiasis with gallbladder wall thickening. Rule out cholecystitis. Same day CT abdomen/pelvis demonstrates CT features favoring acute cholecystitis. 2. Pancreas obscured by bowel gas.
[2019-07-11] MEDS ORDERED: Cardizem IV 50 MG/10 ML IV ONE ×2 (16:32→16:35)
[2019-07-11 16:33] LABS: Potassium 3.6 mmol/L (3.5-5.1)
[2019-07-11] MEDS ORDERED: FEVERALL 650 MG PR PRN (17:20)
[2019-07-11] MEDS ORDERED: MEFOXIN 2 GM PREMIX** 2 GM/50 ML ML IV ONE (19:01)
[2019-07-11] MEDS ORDERED: Transderm Scop 1.5MG Patch ONE (19:01)
[2019-07-11] MEDS ORDERED: Lactated Ringers 1,000 ML IV ONE (19:01)
[2019-07-11] MEDS: Zosyn 3.375GM/100 Ml D5W 3.375 GM/100 ML IVPB IV SCH (19:13)
[2019-07-11] MEDS ORDERED: Transderm Scop 1.5MG Patch TOP ONE (19:16)
[2019-07-11] MEDS: Lactated Ringers 1,000 ML IV SCH (19:17)
[2019-07-11] MEDS ORDERED: Sensorcaine 0.25% 10 ML ONE (19:26)
[2019-07-11] MEDS ORDERED: MEFOXIN 2 GM PREMIX** 2 GM/50 ML ML IV SCH (20:00)
[2019-07-11] MEDS: DILAUDID 2 MG INJECTION IV PRN (20:35)
[2019-07-11] MEDS ORDERED: Toprol-Xl 25MG Tablets PO ONE (21:35)
[2019-07-11] MEDS ORDERED: Toprol-Xl 25MG Tablets ONE (21:36)
[2019-07-11] MEDS: Sodium Chloride 0.9% 1000 ML 1,000 ML IV SCH (22:21)
[2019-07-12] MEDS: Zosyn 3.375GM/100 Ml D5W 3.375 GM/100 ML IVPB IV SCH ×4 (00:38→17:29)
[2019-07-12] MEDS: DILAUDID 2 MG INJECTION IV PRN ×5 (02:44→22:43)
[2019-07-12 02:45] LABS: BASOPHIL % 0.2 % (0.0-0.4); Basophil (Absolute #) 0.03 (0-0.4); Eosinophil % 1.1 % (0.00-5.0); Eosinophil (Absolute #) 0.19 (0-0.5); Granulocyte Absolute (ANC) 14.13 (1.4-6.9); Granulocytes % 84.1 % (36.0-66.0); Hematocrit 34.6 % (42-50); Hemoglobin 11.9 gm/dl (12.5-18.0); Lymphocyte (Absolute #) 1.02 (1.0-4.6); Lymphocytes % 6.1 % (24.0-44.0); Mean Corpuscular Hgb Concent. 34.4 g/dl (32-36); Mean Platelet Volume 10.8 fl (6-9.5); Monocyte (Absolute #) 1.42 (0.0-1.3); Monocytes % 8.5 % (0.0-12.0); Platelet Count 195 K/mm3 (150-450); Red Blood Count 4.12 M/mm3 (4.1-5.6); Red Cell Distribution Width 13.6 % (11.5-14.0); White Blood Count 16.8 K/mm3 (4.0-10.5)
[2019-07-12 02:47] LABS: Mean Corpuscular Hemoglobin 28.8 pg (26-32)
[2019-07-12 03:12] LABS: ALKALINE PHOSPHATASE 58 U/L (38-126); ANION GAP 11.2 MEQ/L (5-15); BLOOD UREA NITROGEN 30 mg/dL (9-20); CHLORIDE 101 mmol/L (98-107); Calcium 8.3 mg/dL (8.4-10.2); Carbon Dioxide 26 mmol/L (22-30); Creatinine 1 1.22 mg/dL (0.66-1.25); Glucose 122 mg/dL (74-106); Potassium 3.7 mmol/L (3.5-5.1); SGOT/AST 19 U/L (17-59); SGPT/ALT 20 U/L (0-50); SODIUM 134 mmol/L (137-145); Total Protein 5.9 g/dL (6.3-8.2)
[2019-07-12] MEDS: Sodium Chloride 0.9% 1000 ML 1,000 ML IV SCH ×2 (07:37→16:03)
--- NOTE | 2019-07-12 07:56 | CONS ---
CONSULT DATE: 07/11/2019 The patient is seen on Dr. Hargrove's call day. He asked that I stop in and check on Jairo Moreira. HISTORY: The patient is a 63 year-old gentleman who has had a four day history of epigastric right upper quadrant pain. He had CT scan showed question of acute cholecystitis. He had some lower lobe atelectasis bilaterally. Ultrasound showed tiny cholelithiasis and wall thickness. It is felt he had acute cholecystitis. He had white count of 20. He is only taking aspirin. He had temperature of 99F, respirations 20, blood pressure 113/69. Hemoglobin 14. Liver function test AST, ALT, alkaline phosphatase all within normal limits. Total bilirubin is 1.4. Lipase normal at 20. Troponin was negative. PAST MEDICAL HISTORY: Hypercholesterolemia, hypertension. Otherwise denies any heart disease or blood thinner usage other than aspirin. PAST SURGICAL HISTORY: Shoulder surgery. He denied any prior abdominal surgery. HOME MEDICATIONS: Aspirin, diphenhydramine, garlic, ibuprofen, losartan, lovastatin, melatonin, omega-3, fish oil. ALLERGIES: ACETAMINOPHEN. HYDROCODONE. OXYCODONE. FAMILY HISTORY: Negative in regards to this particular problem. SOCIAL HISTORY: Former smoker. He denies alcohol abuse. REVIEW OF SYSTEMS: Fourteen systems reviewed. No chest pain or palpitations otherwise pertinent for upper abdominal pain radiating up towards the chest. PHYSICAL EXAMINATION: GENERAL: No acute distress. HEENT: Sclera nonicteric. NECK: No JVD. CHEST: Equal excursion, nonlabored breathing. CVS: Regular rate and rhythm. ABDOMEN: Soft. Tenderness in the epigastrium right upper quadrant. No peritoneal signs. EXTREMITIES: No edema. NEURO: Alert, moving extremities grossly symmetrically. No gross motor deficits. IMPRESSION: Symptomatic cholelithiasis, acute exacerbation of chronic cholecystitis. I feel the patient would benefit from some IV antibiotics and cholecystectomy this admission. As I am tied up this evening unless Dr. Hargrove is planning doing late, late tonight would likely have cholecystectomy tomorrow late afternoon or evening pending operative time schedule. General risk of anesthesia, deep venous thrombosis, pulmonary embolism, pneumonia, general risk of aches, pains, bloating or loose stools, risk of trocar injury or hernia, risk of bile leak, bile duct injury, retained stone or sludge possibly requiring further procedure, possible need for open procedure and likely will place drain afterwards if required. They understand and agree to the planned procedure. Keep him on IV antibiotics in the meantime, will check with the office to see if Dr. Hargrove, as I am seeing this patient for him, see if he is planning on doing later this evening otherwise will schedule him tomorrow. The family understands.
[2019-07-12] MEDS ORDERED: MEDICATION INTERVENTION MC SCH ×2 (09:15)
[2019-07-12] MEDS ORDERED: GARLIC PO SCH (10:00)
[2019-07-12] MEDS ORDERED: NON-FORMULARY ITEM (Lovastatin [Lovastatin] 40 MG) PO SCH (10:00)
[2019-07-12] MEDS ORDERED: NON-FORMULARY ITEM (Melatonin [Melatonin] 10 MG) PO SCH (10:00)
[2019-07-12] MEDS ORDERED: NON-FORMULARY ITEM (Losartan/Hydrochlorothiazide [Losartan-Hctz 100-12.5 Mg Tab] 1 EACH) PO SCH (10:00)
[2019-07-12] MEDS ORDERED: BABY ASPIRIN 81 MG CHEW PO SCH (10:00)
--- NOTE | 2019-07-12 10:32 | HP ---
CHIEF COMPLAINT: Right upper quadrant abdominal pain. HISTORY OF PRESENT ILLNESS: The patient is a 63 year-old white male who presented to the emergency room approximately three days ago with abdominal pain radiating to his chest. His evaluation was negative for cardiac source at that time. He was allowed to discharge home and had a follow up in our office with his provider, Chantel Mcgee. Due to the complaints of chest discomfort when he was seen in the office again sent back to the emergency room for further evaluation at this time. It did reveal what appeared to be an acute cholecystitis. The patient did have problems with rhythm disturbance while he was in the later stages of his emergency room visit which appeared that he was trying to go into atrial fibrillation. He received 10 mg of diltiazem in the emergency room and admitted to the hospital for further evaluation and management. PAST MEDICAL/SURGICAL HISTORY: Significant for hypertension, hyperlipidemia. 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 He has no history of cardiac problems otherwise in regards to coronary artery disease to our knowledge. The patient had shoulder surgery but no other surgeries. HOME MEDICATIONS: Aspirin 81 mg a day, Benadryl PRN, garlic tablets, ibuprofen every six hours PRN for pain, losartan hydrochlorothiazide 100-12.5 mg daily, lovastatin 20 mg daily, melatonin, omega-3 fatty acid, trazodone. ALLERGIES: PERCOCET, NORCO. PHYSICAL EXAMINATION: The patient's temperature was 99.3F on admission, pulse 104, respiratory rate 20 and blood pressure 113/69. HEENT: Normocephalic, atraumatic. Pupils equal round reactive to light. Extraocular movements intact. Oropharynx is pink and moist. NECK: Supple without lymphadenopathy, thyromegaly or JVD. CHEST: Clear to auscultation with good air movement bilaterally. HEART: Currently regular without murmurs, rubs or gallops heard. ABDOMEN: Soft, slightly tender right upper quadrant. EXTREMITIES: Without cyanosis, clubbing or edema. NEUROLOGIC: The patient is alert and oriented x3 with no focal deficits. LAB DATA AND TESTS: Otherwise revealed that his white count had risen from 15,000 to 20,000 over the three days since his previous emergency room visit. The lactic acid is slightly high at 2.2. His troponins have all been less than 0.012. His hemoglobin was 14.1, PLT count 219,000. There does appear to be a left shift with 88.9% granulocytes. His metabolic panel showed a glucose 126, BUN 39, creatinine 1.35. Electrolytes were fairly normal. Liver enzymes were fairly normal. Bilirubin slightly high at 1.40. Amylase and lipase were within normal range. After fluids lactic acid was 1.1. He did have CT scan with abnormal gallbladder with details favoring acute cholecystitis, incidental colonic diverticulosis without diverticulitis and bilateral lower lobe atelectasis. His EKG findings again showed evidence of what appeared to be atrial fibrillation flutter at times and at other times sinus rhythm. ASSESSMENT: The patient has been admitted to the hospital for telemetry and monitoring. We will obtain a cardiology consultation. Surgery has also been consulted who agrees that the patient does need his gallbladder removed after he has clearance from cardiology.
[2019-07-12] MEDS: hydroDIURIL 25 MG PO SCH (10:38)
[2019-07-12] MEDS: ECOTRIN 81 MG PO SCH (10:39)
[2019-07-12] MEDS: Cozaar 50 MG PO SCH (10:39)
[2019-07-12] MEDS: Zofran 4 MG/2 ML VIAL IV PRN ×2 (13:44→22:38)
[2019-07-12] MEDS ORDERED: TRAZODONE HCL 50 MG SCH (22:00)
[2019-07-12] MEDS: ZOCOR 20MG PO SCH (22:50)
[2019-07-12] MEDS: DESYREL 50 MG PO SCH (22:51)
[2019-07-13] MEDS: Sodium Chloride 0.9% 1000 ML 1,000 ML IV SCH ×2 (00:06→09:39)
[2019-07-13] MEDS: Zosyn 3.375GM/100 Ml D5W 3.375 GM/100 ML IVPB IV SCH ×4 (00:30→17:59)
[2019-07-13] MEDS: DILAUDID 2 MG INJECTION IV PRN (03:47)
--- NOTE | 2019-07-13 08:37 | XRAY ---
Indication: Short of breath. Comparison: July 11, 2019. Portable chest demonstrates increasing right effusion/atelectasis with new right perihilar infiltrate and stable small left base effusion/atelectasis. Heart is not enlarged.
[2019-07-13] MEDS ORDERED: Dulcolax 10 MG SUPP PR ONE (09:18)
[2019-07-13 09:22] LABS: A-aADO2 125; ABG HEMOGLOBIN 11.6; ABG POTASSIUM 3.3 (3.5-5.1); ABG SITE RIGHT RADIAL; ALLEN TEST OK? YES; ARTERIAL BLD GAS O2 SATURATION 95.8 % (95-100); ARTERIAL BLOOD GAS BASE EXCESS 0.2 (-2.0-2.0); ARTERIAL BLOOD GAS FIO2 32 %; ARTERIAL BLOOD GAS PCO2 32 mmHg (35-45); ARTERIAL BLOOD GAS PO2 63 mmHg (75-100); ARTERIAL BLOOD GAS pH 7.47 (7.35-7.45); CARBOXYHEMOGLOBIN 2.8 % THgb (0.0-6.9); HCO3- 23.3 (22-28); HGB O2 SAT 92.3 g/dF (94-100); Methhemoglobin 0.9 % (1.4-1.5); paO2 pAO1 0.34
[2019-07-13] MEDS: Cozaar 50 MG PO SCH (09:31)
[2019-07-13] MEDS: ECOTRIN 81 MG PO SCH (09:31)
[2019-07-13] MEDS: Zithromax 500 MG/ 250 ML NaCl Premix 500 MG/250 ML IVPB IV SCH (09:31)
[2019-07-13] MEDS: hydroDIURIL 25 MG PO SCH (09:31)
[2019-07-13] MEDS ORDERED: POTASSIUM CHLORIDE 20 mEq IN WATER 100ML 20 MEQ/100 ML BAG IV SCH (10:00)
[2019-07-13] MEDS ORDERED: Potassium Chloride 40 MEQ/20 ML VIAL 40 MEQ, XYLOCAINE 1% HCL 20 ML MDV*** 2 ML in Sodi... IV ONE (10:00)
[2019-07-13] MEDS ORDERED: Sensorcaine 0.25% 10 ML ONE (12:29)
[2019-07-13] MEDS ORDERED: MEFOXIN 2 GM PREMIX** 2 GM/50 ML ML IV SCH ×2 (13:00→22:00)
[2019-07-13] MEDS ORDERED: Versed 2 MG/2 ML Injection ONE (13:47)
[2019-07-13] MEDS ORDERED: Zemuron 100 MG/10 ML ONE (13:47)
[2019-07-13] MEDS ORDERED: SUBLIMAZE 250 MCG/5 ML ONE (13:47)
[2019-07-13] MEDS ORDERED: Quelicin Fliptop 200 MG/10 ML ONE (13:47)
[2019-07-13] MEDS ORDERED: DIPRIVAN 200 MG/20 ML IV ONE (13:47)
[2019-07-13] MEDS ORDERED: BREVIBLOC 100 MG/10 ML IV ONE (14:55)
[2019-07-13] MEDS ORDERED: Lasix 20 MG/2 ML ONE ×2 (14:55→14:56)
[2019-07-13] MEDS ORDERED: Zofran 4 MG/2 ML VIAL ONE (15:47)
[2019-07-13] MEDS ORDERED: Decadron 4 MG INJ ONE (15:47)
[2019-07-13] MEDS ORDERED: BRIDION 200MG/2ML IV ONE (15:52)
[2019-07-13] MEDS ORDERED: MORPHINE SULFATE 10 MG/ML ONE (15:55)
[2019-07-13] MEDS ORDERED: Compazine 10 MG/2 ML ONE (16:32)
--- NOTE | 2019-07-13 17:16 | XRAY ---
Indication: Status post cholecystectomy. Comparison: Taken earlier today. Portable chest demonstrates subjectively stable bibasilar effusions/atelectasis again right greater than left. New right base discoid atelectasis. Heart is not enlarged. Remaining chest unremarkable.
[2019-07-13] MEDS ORDERED: Morphine PCA 1 MG/ML 30 ML IV PRN (17:28)
[2019-07-13] MEDS: D5W/0.45NS W/ 20mEq KCl 1000 ML 1,000 ML IV SCH (17:53)
[2019-07-13] MEDS: DUONEB 0.5-3 MG/3 ml Neb IH SCH ×2 (18:59→23:32)
[2019-07-13] MEDS ORDERED: Lopressor 25MG Tab PO ONE (22:20)
[2019-07-13] MEDS: DESYREL 50 MG PO SCH (22:43)
[2019-07-13] MEDS: ZOCOR 20MG PO SCH (22:43)
[2019-07-13] MEDS ORDERED: DUONEB 0.5-3 MG/3 ml Neb IH ONE (23:30)
[2019-07-14] MEDS: Zosyn 3.375GM/100 Ml D5W 3.375 GM/100 ML IVPB IV SCH ×5 (01:24→23:28)
[2019-07-14] MEDS: DILAUDID 2 MG INJECTION IV PRN ×2 (04:04→09:05)
[2019-07-14 05:58] LABS: Hematocrit 31.1 % (42-50); Hemoglobin 10.7 gm/dl (12.5-18.0); Mean Cell Volume 84.3 fl (78-100); Mean Corpuscular Hgb Concent. 34.4 g/dl (32-36); Mean Platelet Volume 10.8 fl (6-9.5); Platelet Count 291 K/mm3 (150-450); Red Blood Count 3.69 M/mm3 (4.1-5.6); Red Cell Distribution Width 13.9 % (11.5-14.0); White Blood Count 18.7 K/mm3 (4.0-10.5)
[2019-07-14 06:08] LABS: Mean Corpuscular Hemoglobin 28.9 pg (26-32)
[2019-07-14 06:16] LABS: ALBUMIN 2.9 g/dL (3.5-5.0); ALKALINE PHOSPHATASE 78 U/L (38-126); ANION GAP 13.2 MEQ/L (5-15); BLOOD UREA NITROGEN 20 mg/dL (9-20); CHLORIDE 102 mmol/L (98-107); Calcium 8.1 mg/dL (8.4-10.2); Carbon Dioxide 26 mmol/L (22-30); Creatinine 1 0.99 mg/dL (0.66-1.25); Glucose 222 mg/dL (74-106); Potassium 4.1 mmol/L (3.5-5.1); SGOT/AST 52 U/L (17-59); SGPT/ALT 43 U/L (0-50); SODIUM 137 mmol/L (137-145); Total Protein 5.9 g/dL (6.3-8.2)
[2019-07-14] MEDS: DUONEB 0.5-3 MG/3 ml Neb IH SCH ×4 (07:16→18:58)
[2019-07-14] MEDS: D5W/0.45NS W/ 20mEq KCl 1000 ML 1,000 ML IV SCH ×2 (07:32→21:28)
[2019-07-14] MEDS: Lactated Ringers 1,000 ML IV SCH (08:07)
--- NOTE | 2019-07-14 08:24 | OP ---
SURGERY DATE/TIME: 07/13/2019 1439 PREOPERATIVE DIAGNOSIS: Acute gallbladder. POSTOPERATIVE DIAGNOSIS: Gangrenous gallbladder but a very high fixation in the epigastrium fixated to the anterior abdominal wall with gangrenous component and abscess. PROCEDURE: Laparoscopic cholecystectomy, difficult. SURGEON: Dr. Hargrove. ANESTHESIA: General. ESTIMATED BLOOD LOSS: None. DRAINS: One. COMPLICATIONS: None. CONDITION: Stable. INDICATIONS: A patient with acute cholecystitis and also had atrial fibrillation. He had been cleared by cardiology. DESCRIPTION OF PROCEDURE AND FINDINGS: He was taken to surgery. General anesthetic, routine prep and drape. Port holes initially epigastric hole changed to a 5 to 12. Cystic duct was taken with stapler for security. Gallbladder rolled out of gallbladder fossa. Cystic artery triply clipped. Gallbladder delivered piecemeal through the epigastric incision. Multiple stones removed. It was gangrenous. It was purulent. It was irrigated. It was suctioned. There was about 300 cc blood loss. A 10 DOM was placed. Of interest, it was really stuck anteriorly epigastric up above the liver about 2 inches which was very high. The field was satisfactory. Port site closed with 0 Vicryl. Skin closed with tabitha. Sterile dressing applied. The patient tolerated the procedure satisfactorily.
[2019-07-14] MEDS ORDERED: NORCO 5/325 MG PO PRN (09:00)
[2019-07-14] MEDS: Cozaar 50 MG PO SCH ×2 (09:06→09:07)
[2019-07-14] MEDS: hydroDIURIL 25 MG PO SCH (09:06)
[2019-07-14] MEDS: ENOXAPARIN SODIUM SQ SCH (09:06)
[2019-07-14] MEDS: Zithromax 500 MG/ 250 ML NaCl Premix 500 MG/250 ML IVPB IV SCH (09:06)
[2019-07-14] MEDS: ECOTRIN 81 MG PO SCH (09:07)
[2019-07-14] MEDS: Zofran 4 MG/2 ML VIAL IV PRN ×2 (09:52→17:57)
[2019-07-14] MEDS: ULTRAM 50 MG PO PRN ×2 (11:50→17:18)
[2019-07-14] MEDS: Colace 100 MG PO SCH ×2 (11:56→21:28)
[2019-07-14] MEDS: Tums EX 750 MG PO PRN (17:59)
[2019-07-14] MEDS: DESYREL 50 MG PO SCH (21:28)
[2019-07-14] MEDS: ZOCOR 20MG PO SCH (21:28)
[2019-07-15] MEDS: Zosyn 3.375GM/100 Ml D5W 3.375 GM/100 ML IVPB IV SCH ×3 (05:43→20:47)
[2019-07-15 06:22] LABS: Hematocrit 30.6 % (42-50); Hemoglobin 10.6 gm/dl (12.5-18.0); Mean Cell Volume 84.1 fl (78-100); Mean Corpuscular Hemoglobin 29.1 pg (26-32); Mean Corpuscular Hgb Concent. 34.6 g/dl (32-36); Mean Platelet Volume 10.6 fl (6-9.5); Platelet Count 357 K/mm3 (150-450); Red Blood Count 3.64 M/mm3 (4.1-5.6); Red Cell Distribution Width 13.9 % (11.5-14.0); White Blood Count 21.6 K/mm3 (4.0-10.5)
[2019-07-15 06:44] LABS: ALKALINE PHOSPHATASE 72 U/L (38-126); ANION GAP 12.1 MEQ/L (5-15); BLOOD UREA NITROGEN 15 mg/dL (9-20); CHLORIDE 104 mmol/L (98-107); Calcium 8.3 mg/dL (8.4-10.2); Carbon Dioxide 27 mmol/L (22-30); Creatinine 1 0.87 mg/dL (0.66-1.25); Glucose 143 mg/dL (74-106); Potassium 3.5 mmol/L (3.5-5.1); SGOT/AST 36 U/L (17-59); SGPT/ALT 45 U/L (0-50); SODIUM 139 mmol/L (137-145); Total Protein 5.9 g/dL (6.3-8.2)
[2019-07-15] MEDS: DUONEB 0.5-3 MG/3 ml Neb IH SCH ×4 (06:57→19:35)
[2019-07-15] MEDS: ULTRAM 50 MG PO PRN ×3 (07:20→17:45)
[2019-07-15 07:39] LABS: BAND 10 % (0.0-2.0); Lymphocytes 8 % (24-44); Monocyte 2 % (0.0-12.0); Myelocyte 1 %; Neutrophils 79 % (36.-66.); Total Cells Counted 100
[2019-07-15 07:40] LABS: Hypochromia 1+; Platelet Estimate NORMAL (NORMAL); Poikilocytosis 1+
[2019-07-15 07:41] LABS: ANISOCYTOSIS 1+; Basophilic Stippling 1+; Granulocyte Absolute (ANC) 19.25 (1.4-6.9)
[2019-07-15] MEDS ORDERED: PHARMACY DOSING REQUIRED: VANCOMYCIN IV ONE (08:08)
[2019-07-15] MEDS: D5W/0.45NS W/ 20mEq KCl 1000 ML 1,000 ML IV SCH (08:52)
[2019-07-15] MEDS: Colace 100 MG PO SCH ×2 (08:54→20:47)
[2019-07-15] MEDS: ECOTRIN 81 MG PO SCH (08:54)
[2019-07-15] MEDS: VANCOCIN 1 GM VIAL*** 1 GM in Sodium Chloride 0.9% 250 ML 250 ML IV SCH ×2 (08:54→17:44)
[2019-07-15] MEDS: Mucinex 600MG ER Tabs PO SCH ×2 (08:54→20:47)
[2019-07-15] MEDS: ENOXAPARIN SODIUM SQ SCH (08:54)
[2019-07-15] MEDS: Miralax Powder 17GM PACKET PO SCH (08:55)
[2019-07-15] MEDS: hydroDIURIL 25 MG PO SCH (08:55)
[2019-07-15] MEDS: Cozaar 50 MG PO SCH (08:55)
--- NOTE | 2019-07-15 09:23 | XRAY ---
Indication: Cough. Decreased oxygenation. Comparison: July 13, 2019. PA/lateral chest again demonstrates bibasilar effusions/atelectasis, slightly improved on the right and unchanged on the left. Heart is not enlarged. No new cardiopulmonary abnormalities.
[2019-07-15] MEDS: Zofran 4 MG/2 ML VIAL IV PRN (13:19)
[2019-07-15] MEDS: ZOCOR 20MG PO SCH (20:47)
[2019-07-15] MEDS: DESYREL 50 MG PO SCH (20:47)
[2019-07-16] MEDS: Zosyn 3.375GM/100 Ml D5W 3.375 GM/100 ML IVPB IV SCH ×5 (01:15→23:45)
[2019-07-16] MEDS: D5W/0.45NS W/ 20mEq KCl 1000 ML 1,000 ML IV SCH ×2 (01:15→22:14)
[2019-07-16] MEDS: ULTRAM 50 MG PO PRN ×2 (01:16→09:06)
[2019-07-16] MEDS: VANCOCIN 1 GM VIAL*** 1 GM in Sodium Chloride 0.9% 250 ML 250 ML IV SCH ×3 (02:37→18:13)
[2019-07-16] MEDS: Zofran 4 MG/2 ML VIAL IV PRN (04:32)
[2019-07-16 04:50] LABS: Hematocrit 31.7 % (42-50); Hemoglobin 10.8 gm/dl (12.5-18.0); Mean Cell Volume 85.4 fl (78-100); Mean Corpuscular Hemoglobin 29.1 pg (26-32); Mean Corpuscular Hgb Concent. 34.1 g/dl (32-36); Mean Platelet Volume 9.9 fl (6-9.5); Platelet Count 408 K/mm3 (150-450); Red Blood Count 3.71 M/mm3 (4.1-5.6); Red Cell Distribution Width 14.2 % (11.5-14.0); White Blood Count 19.8 K/mm3 (4.0-10.5)
[2019-07-16 05:02] LABS: ALBUMIN 3.2 g/dL (3.5-5.0); ALKALINE PHOSPHATASE 74 U/L (38-126); ANION GAP 12.2 MEQ/L (5-15); BLOOD UREA NITROGEN 13 mg/dL (9-20); CHLORIDE 101 mmol/L (98-107); Calcium 8.9 mg/dL (8.4-10.2); Carbon Dioxide 29 mmol/L (22-30); Creatinine 1 0.77 mg/dL (0.66-1.25); Glucose 78 mg/dL (74-106); Potassium 4.2 mmol/L (3.5-5.1); SGOT/AST 38 U/L (17-59); SGPT/ALT 46 U/L (0-50); SODIUM 139 mmol/L (137-145); Total Protein 6.1 g/dL (6.3-8.2)
[2019-07-16 05:42] LABS: BAND 1 % (0.0-2.0); Eosinophil 2 % (0.00-3.0); Lymphocytes 9 % (24-44); Monocyte 4 % (0.0-12.0); Neutrophils 84 % (36.-66.); Platelet Estimate NORMAL (NORMAL); Total Cells Counted 100; Toxic Granulation 2+
[2019-07-16] MEDS: DUONEB 0.5-3 MG/3 ml Neb IH SCH ×4 (06:54→20:00)
[2019-07-16] MEDS ORDERED: TROUGH DRUG LEVELS IJ ONE (09:30)
[2019-07-16] MEDS: ENOXAPARIN SODIUM SQ SCH (09:41)
[2019-07-16] MEDS: Cozaar 50 MG PO SCH (09:42)
[2019-07-16] MEDS: Mucinex 600MG ER Tabs PO SCH ×2 (09:42→22:12)
[2019-07-16] MEDS: hydroDIURIL 25 MG PO SCH (09:42)
[2019-07-16] MEDS: ECOTRIN 81 MG PO SCH (09:42)
[2019-07-16] MEDS: Miralax Powder 17GM PACKET PO SCH (09:42)
[2019-07-16] MEDS: Colace 100 MG PO SCH ×2 (09:42→22:12)
[2019-07-16] MEDS ORDERED: SENOKOT 8.6 MG PO PRN (10:12)
[2019-07-16] MEDS: Flomax 0.4 MG PO SCH (10:33)
--- NOTE | 2019-07-16 11:15 | PCM.NOTE ---
Date and Time: 07/16/19 1110 Subjective Assessment: Patient reports he is having some constipation and has not had a stool since surgery. He reports some trouble with urination. He had 50 mL out and felt like there was more that wouldn't come out so was straight cathed and 800 mL more came out. His is at the bedside. He sees Dr. Cam for management of his hypertension and Dr. Cam cleared him for his surgery when he was found to have new onset a. fib. Discussed with the patient that once clear from surgical standpoint for anticoagulation, he will probably need brokerage office manager anticoagulation to prevent stroke from a. fib. Discussed that Dr. Stanford will probably want to discuss this with Dr. Cam. Objective Exam General Appearance: no apparent distress, alert Neurologic Exam: alert, cooperative, normal mood/affect Skin Exam: normal color, warm, dry Respiratory Exam: other (decreased breath sounds in right lower lung field, normal breath sounds in left lung michelle; no crackles, no wheezes) Cardiovascular Exam: other (irregularly irregular), No murmur, No friction rub, No gallop Gastrointestinal/Abdomen Exam: soft, other (mild distension, tabitha in place, drain in place draining serosangenous fluid) Extremity Exam: other (no c/c/e) OBJECTIVE DATA Vital Signs: Vital Signs - 24 hr Temp Pulse Resp BP Pulse Ox 07/16/19 10:59 84 18 93 L 07/16/19 07:17 98 F 89 20 114/67 92 L 07/16/19 07:06 89 18 92 L 07/16/19 04:00 98.4 F 81 18 120/65 94 L 07/16/19 00:00 97.7 F 98 H 18 111/57 93 L 07/15/19 20:00 98.6 F 88 18 118/56 95 07/15/19 19:37 98 H 22 92 L 07/15/19 16:00 98.4 F 52 L 24 136/63 90 L 07/15/19 14:50 84 18 94 L 07/15/19 12:00 98.9 F 83 18 119/62 96 Oxygen-Last 24 hours O2 Percentage 2 Liters = 28% O2 Percentage 2 Liters = 28% Oxygen Flowrate (L/min)-RT 2 Oxygen Flowrate (L/min)-RT 2 Oxygen Flowrate (L/min)-RT 2 Pain Assessment - Last Documented Pain Intensity 3 Pain Scale Used 0-10 Pain Scale Intake and Output: Intake & Output 07/14/19 07/15/19 07/16/19 07/17/19 06:59 06:59 06:59 06:59 Intake Total 3092 4506 2555 Output Total 1925 1035 1200 20 Balance 1167 3471 1355 -20 Weight 100 kg 100.8 kg 100 kg Lab Results: Lab Results-Last 24 Hours 07/15/19 07/16/19 07/16/19 Range/Units 05:00 04:47 04:47 WBC 19.8 H (4.0-10.5) K/mm3 RBC 3.71 L (4.1-5.6) M/mm3 Hgb 10.8 L (12.5-18.0) gm/dl Hct 31.7 L (42-50) % MCV 85.4 (78-100) fl MCH 29.1 (26-32) pg MCHC 34.1 (32-36) g/dl RDW 14.2 H (11.5-14.0) % Plt Count 408 (150-450) K/mm3 MPV 9.9 H (6-9.5) fl Segmented Neutrophils 84 H (36.-66.) % Band Neutrophils 1 (0.0-2.0) % Lymphocytes (Manual) 9 L (24-44) % Monocytes (Manual) 4 (0.0-12.0) % Eosinophils (Manual) 2 (0.00-3.0) % Toxic Granulation 2+ Platelet Estimate NORMAL (NORMAL) RBC Morphology NORMAL Sodium 139 (137-145) mmol/L Potassium 4.2 (3.5-5.1) mmol/L Chloride 101 (98-107) mmol/L Carbon Dioxide 29 (22-30) mmol/L Anion Gap 12.2 (5-15) MEQ/L BUN 13 (9-20) mg/dL Creatinine 0.77 (0.66-1.25) mg/dL Estimated GFR > 60.0 ML/MIN Glucose 78 (74-106) mg/dL Calcium 8.9 (8.4-10.2) mg/dL Magnesium 2.3 (1.6-2.3) mg/dL Total Bilirubin 1.00 (0.2-1.3) mg/dL AST 38 (17-59) U/L ALT 46 (0-50) U/L Alkaline Phosphatase 74 (38-126) U/L Serum Total Protein 6.1 L (6.3-8.2) g/dL Albumin 3.2 L (3.5-5.0) g/dL Vancomycin Trough (10-20) ug/mL 07/16/19 Range/Units 09:41 WBC (4.0-10.5) K/mm3 RBC (4.1-5.6) M/mm3 Hgb (12.5-18.0) gm/dl Hct (42-50) % MCV (78-100) fl MCH (26-32) pg MCHC (32-36) g/dl RDW (11.5-14.0) % Plt Count (150-450) K/mm3 MPV (6-9.5) fl Segmented Neutrophils (36.-66.) % Band Neutrophils (0.0-2.0) % Lymphocytes (Manual) (24-44) % Monocytes (Manual) (0.0-12.0) % Eosinophils (Manual) (0.00-3.0) % Toxic Granulation Platelet Estimate (NORMAL) RBC Morphology Sodium (137-145) mmol/L Potassium (3.5-5.1) mmol/L Chloride (98-107) mmol/L Carbon Dioxide (22-30) mmol/L Anion Gap (5-15) MEQ/L BUN (9-20) mg/dL Creatinine (0.66-1.25) mg/dL Estimated GFR ML/MIN Glucose (74-106) mg/dL Calcium (8.4-10.2) mg/dL Magnesium (1.6-2.3) mg/dL Total Bilirubin (0.2-1.3) mg/dL AST (17-59) U/L ALT (0-50) U/L Alkaline Phosphatase (38-126) U/L Serum Total Protein (6.3-8.2) g/dL Albumin (3.5-5.0) g/dL Vancomycin Trough 13.39 (10-20) ug/mL Radiology Exams: Radiology Procedures Category Date Time Status CHEST 2 VIEWS (PA AND LAT) Routine Exams 07/15/19 09:00 Completed Multi-Disciplinary Progress Notes: Multi-Disciplinary Progress Notes 07/15/19 13:00 (created 07/15/19 14:19) Case Management Note by Alexandrea Cordon REVIEWED DISCHARGE PLAN. CONTINUES TO PLAN TO RETURN HOME WITH TO PRE EPISODIC LEVEL OF FNX. NORMALLY VERY ACTIVE AND INDEPENDENT WITH ALL ADL'S. REPORTS THAT HE RECENTLY RETIRED. DENIES ADDNL NEEDS AT PRESENT TIME. WILL FOLLOW. Initialized on 07/15/19 14:19 - END OF NOTE Assessment/Plan (1) Atrial fibrillation and flutter Current Visit: Yes Status: Acute Assessment & Plan: Currently not anticoagulated as just had surgery. When surgeons clear him for anticoagulation, his environmental intern will need to direct what he would like for him to take. Currently rate is controlled. Code(s): I48.91 - UNSPECIFIED ATRIAL FIBRILLATION; I48.92 - UNSPECIFIED ATRIAL FLUTTER (2) Gangrenous cholecystitis Current Visit: Yes Status: Acute Assessment & Plan: s/p surgery with lap zeny on 07/13/19. General surgeons following. WBC continues to be elevated. He is on zosyn and vancomycin (day 2) and azithromycin was stopped yesterday. Code(s): K81.0 - ACUTE CHOLECYSTITIS (3) Pleural effusion, right Current Visit: Yes Status: Acute Assessment & Plan: If oxygenation does not improve or effusions worsens may need ultrasound guided thoracentesis. Sputum culture was positive for gram neg organism. Again he is on broad spectum antibiotics. Awaiting ID and sensitivity. Code(s): J90 - PLEURAL EFFUSION, NOT ELSEWHERE CLASSIFIED (4) Constipation Current Visit: Yes Status: Acute Assessment & Plan: Continue miralax, docusate and add senna Code(s): K59.00 - CONSTIPATION, UNSPECIFIED (5) Urinary retention Current Visit: Yes Status: Acute Assessment & Plan: Start flomax. He may have underlying BPH that will need worked up as an outpatient. Code(s): R33.9 - RETENTION OF URINE, UNSPECIFIED
[2019-07-16] MEDS: DESYREL 50 MG PO SCH (22:11)
[2019-07-16] MEDS: ZOCOR 20MG PO SCH (22:12)
[2019-07-17] MEDS: VANCOCIN 1 GM VIAL*** 1 GM in Sodium Chloride 0.9% 250 ML 250 ML IV SCH ×3 (02:26→16:56)
[2019-07-17 04:44] LABS: Hematocrit 28.1 % (42-50); Hemoglobin 9.5 gm/dl (12.5-18.0); Mean Cell Volume 85.7 fl (78-100); Mean Corpuscular Hgb Concent. 33.8 g/dl (32-36); Mean Platelet Volume 9.5 fl (6-9.5); Platelet Count 388 K/mm3 (150-450); Red Blood Count 3.28 M/mm3 (4.1-5.6); White Blood Count 20.7 K/mm3 (4.0-10.5)
[2019-07-17 04:49] LABS: Mean Corpuscular Hemoglobin 28.9 pg (26-32)
[2019-07-17 04:56] LABS: ANION GAP 9.6 MEQ/L (5-15); BLOOD UREA NITROGEN 10 mg/dL (9-20); CHLORIDE 103 mmol/L (98-107); Calcium 8.6 mg/dL (8.4-10.2); Carbon Dioxide 30 mmol/L (22-30); Creatinine 1 0.83 mg/dL (0.66-1.25); Glucose 87 mg/dL (74-106); Potassium 4.3 mmol/L (3.5-5.1); SODIUM 138 mmol/L (137-145)
[2019-07-17] MEDS: Zosyn 3.375GM/100 Ml D5W 3.375 GM/100 ML IVPB IV SCH ×3 (05:58→16:56)
[2019-07-17] MEDS: DUONEB 0.5-3 MG/3 ml Neb IH SCH ×4 (06:35→20:02)
[2019-07-17 08:46] LABS: BAND 3 % (0.0-2.0); Eosinophil 4 % (0.00-3.0); Lymphocytes 6 % (24-44); Monocyte 7 % (0.0-12.0); Neutrophils 80 % (36.-66.); Total Cells Counted 100
[2019-07-17 08:48] LABS: Hypochromia 1+; Platelet Estimate NORMAL (NORMAL); Toxic Granulation 1+
[2019-07-17] MEDS: hydroDIURIL 25 MG PO SCH (09:46)
[2019-07-17] MEDS: ECOTRIN 81 MG PO SCH (09:46)
[2019-07-17] MEDS: Mucinex 600MG ER Tabs PO SCH ×2 (09:46→21:51)
[2019-07-17] MEDS: Flomax 0.4 MG PO SCH (09:46)
[2019-07-17] MEDS: ENOXAPARIN SODIUM SQ SCH (09:46)
[2019-07-17] MEDS: Cozaar 50 MG PO SCH (09:46)
[2019-07-17] MEDS: Colace 100 MG PO SCH (09:47)
[2019-07-17] MEDS: Miralax Powder 17GM PACKET PO SCH (09:47)
[2019-07-17] MEDS ORDERED: Colace 100 MG PO PRN (10:46)
[2019-07-17] MEDS ORDERED: Miralax Powder 17GM PACKET PO PRN (10:46)
--- NOTE | 2019-07-17 11:12 | PCM.NOTE ---
Date and Time: 07/17/19 1110 Subjective Assessment: His and 's family are at the bedside. She reports he was able to walk quite a bit yesterday. He is now having loose stools and no more - Review of Systems Constitutional: Fatigue Eyes: No Symptoms Respiratory: Short Of Breath Cardiac: No Symptoms Abdominal/Gastrointestinal: Abdominal Pain, Diarrhea, No Constipation Genitourinary Symptoms: Other (better urination since starting flomax) Musculoskeletal: Other (no swelling) Objective Exam General Appearance: no apparent distress, other ( at bedside) Neurologic Exam: alert, cooperative Skin Exam: normal color, warm, dry Respiratory Exam: other (decreased breath sounds at right lung base; otherwise CTA bilat, no tachypnea, no retractions, on 1 L NC) Cardiovascular Exam: regular rate/rhythm, No murmur, No friction rub, No gallop Gastrointestinal/Abdomen Exam: soft, normal bowel sounds, tenderness Extremity Exam: other (no c/c/e) OBJECTIVE DATA Vital Signs: Vital Signs - 24 hr Temp Pulse Resp BP Pulse Ox 07/17/19 10:47 74 16 91 L 07/17/19 08:00 20 07/17/19 07:34 98.1 F 86 20 133/69 94 L 07/17/19 07:32 86 20 94 L 07/17/19 04:00 16 07/17/19 03:58 98.7 F 87 18 120/67 95 07/17/19 00:00 18 07/16/19 23:35 98.3 F 92 H 18 114/63 96 07/16/19 20:02 97 H 18 92 L 07/16/19 20:01 98.2 F 97 H 18 118/63 94 L 07/16/19 20:00 18 07/16/19 16:42 97.8 F 66 20 103/52 97 07/16/19 14:28 100 H 18 99 07/16/19 12:19 98 F 82 20 102/55 92 L Oxygen-Last 24 hours O2 Percentage 2 Liters = 28% O2 Percentage 2 Liters = 28% O2 Percentage 2 Liters = 28% O2 Percentage 2 Liters = 28% O2 Percentage 2 Liters = 28% O2 Percentage 2 Liters = 28% Pain Assessment - Last Documented Pain Intensity 0 Pain Scale Used 0-10 Pain Scale Intake and Output: Intake & Output 07/15/19 07/16/19 07/17/19 07/18/19 06:59 06:59 06:59 06:59 Intake Total 4506 2555 2807 Output Total 1035 1200 3025 Balance 3471 1355 -218 Weight 100.8 kg 100 kg 105.2 kg Lab Results: Lab Results-Last 24 Hours 07/17/19 07/17/19 Range/Units 04:45 04:45 WBC 20.7 H (4.0-10.5) K/mm3 RBC 3.28 L (4.1-5.6) M/mm3 Hgb 9.5 L (12.5-18.0) gm/dl Hct 28.1 L (42-50) % MCV 85.7 (78-100) fl MCH 28.9 (26-32) pg MCHC 33.8 (32-36) g/dl RDW 14.0 (11.5-14.0) % Plt Count 388 (150-450) K/mm3 MPV 9.5 (6-9.5) fl Segmented Neutrophils 80 H (36.-66.) % Band Neutrophils 3 H (0.0-2.0) % Lymphocytes (Manual) 6 L (24-44) % Monocytes (Manual) 7 (0.0-12.0) % Eosinophils (Manual) 4 H (0.00-3.0) % Hypochromia 1+ Toxic Granulation 1+ Platelet Estimate NORMAL (NORMAL) RBC Morphology ABNORMAL Sodium 138 (137-145) mmol/L Potassium 4.3 (3.5-5.1) mmol/L Chloride 103 (98-107) mmol/L Carbon Dioxide 30 (22-30) mmol/L Anion Gap 9.6 (5-15) MEQ/L BUN 10 (9-20) mg/dL Creatinine 0.83 (0.66-1.25) mg/dL Estimated GFR > 60.0 ML/MIN Glucose 87 (74-106) mg/dL Calcium 8.6 (8.4-10.2) mg/dL Multi-Disciplinary Progress Notes: Multi-Disciplinary Progress Notes 07/16/19 12:39 Nutrition Note by Maritza Pace F/u Note: Regular diet ordered 07/14 with 50-100% po intake. Hgb 10.7, hct 31.7: other labs WNL. Constipation reported s/p surgery--rec'g miralax. Goal remains. Will monitor, f/u prn. Jani MSRDCD Addendum entered by Maritza Pace 07/16/19 12:55: Pt may benefit from low sodium diet. Jani MSRDCD Initialized on 07/16/19 12:39 - END OF NOTE Assessment/Plan (1) Atrial fibrillation and flutter Current Visit: Yes Status: Acute Assessment & Plan: Will need to discuss anticoagulation with PCP or account support manager once stable for anticoagulation per surgeon. Rate is controlled. Code(s): I48.91 - UNSPECIFIED ATRIAL FIBRILLATION; I48.92 - UNSPECIFIED ATRIAL FLUTTER (2) Gangrenous cholecystitis Current Visit: Yes Status: Acute Assessment & Plan: Continue current IV antibiotics. General surgeon following. WBC continues to be elevated. Code(s): K81.0 - ACUTE CHOLECYSTITIS (3) Pleural effusion, right Current Visit: Yes Status: Acute Assessment & Plan: May need to have US guided thoracentesis if does not improve. Clinically he is improving today as they were able to wean oxygen from 2 L to 1 L NC. Code(s): J90 - PLEURAL EFFUSION, NOT ELSEWHERE CLASSIFIED (4) Urinary retention Current Visit: Yes Status: Acute Assessment & Plan: Improved with flomax. Code(s): R33.9 - RETENTION OF URINE, UNSPECIFIED (5) Sputum production Current Visit: Yes Status: Acute Assessment & Plan: Sputum culture positive for 4+ yeast. Over growth of yeast in normal respiratory morgan is likely due to amount of antibiotics he has been on. Will start diflucan 100 mg po daily x 7 days empirically. Code(s): R05 - COUGH
[2019-07-17] MEDS: Diflucan 100 MG PO SCH (13:17)
[2019-07-17 15:12] LABS: 027 TOX PROD PRESUMPTIVE NEGATIVE (NEGATIVE); TOXIGENIC C. DIFF ORG NEGATIVE (NEGATIVE)
[2019-07-17] MEDS: ULTRAM 50 MG PO PRN (16:56)
[2019-07-17] MEDS: D5W/0.45NS W/ 20mEq KCl 1000 ML 1,000 ML IV SCH (21:51)
[2019-07-17] MEDS: ZOCOR 20MG PO SCH (21:51)
[2019-07-17] MEDS: DESYREL 50 MG PO SCH (21:51)
[2019-07-18] MEDS: Zosyn 3.375GM/100 Ml D5W 3.375 GM/100 ML IVPB IV SCH ×4 (00:02→17:14)
[2019-07-18] MEDS: VANCOCIN 1 GM VIAL*** 1 GM in Sodium Chloride 0.9% 250 ML 250 ML IV SCH ×3 (02:47→20:05)
[2019-07-18 05:02] LABS: Hematocrit 26.4 % (42-50); Hemoglobin 8.9 gm/dl (12.5-18.0); Mean Corpuscular Hgb Concent. 33.7 g/dl (32-36); Mean Platelet Volume 9.2 fl (6-9.5); Platelet Count 411 K/mm3 (150-450); Red Blood Count 3.07 M/mm3 (4.1-5.6); Red Cell Distribution Width 14.2 % (11.5-14.0); White Blood Count 23.2 K/mm3 (4.0-10.5)
[2019-07-18 05:08] LABS: Mean Corpuscular Hemoglobin 28.9 pg (26-32)
[2019-07-18 05:12] LABS: ANION GAP 9.7 MEQ/L (5-15); BLOOD UREA NITROGEN 9 mg/dL (9-20); CHLORIDE 105 mmol/L (98-107); Calcium 8.4 mg/dL (8.4-10.2); Carbon Dioxide 28 mmol/L (22-30); Creatinine 1 0.83 mg/dL (0.66-1.25); Glucose 90 mg/dL (74-106); Potassium 4.1 mmol/L (3.5-5.1); SODIUM 139 mmol/L (137-145)
[2019-07-18 05:45] LABS: BAND 2 % (0.0-2.0); Eosinophil 3 % (0.00-3.0); Lymphocytes 2 % (24-44); Monocyte 3 % (0.0-12.0); Neutrophils 90 % (36.-66.); Total Cells Counted 100
[2019-07-18 05:46] LABS: ANISOCYTOSIS 1+; Platelet Estimate NORMAL (NORMAL); Poikilocytosis 1+
[2019-07-18] MEDS: DUONEB 0.5-3 MG/3 ml Neb IH SCH ×4 (07:08→19:21)
[2019-07-18] MEDS: Cozaar 50 MG PO SCH (10:47)
[2019-07-18] MEDS: Flomax 0.4 MG PO SCH (10:47)
[2019-07-18] MEDS: Diflucan 100 MG PO SCH (10:47)
[2019-07-18] MEDS: ECOTRIN 81 MG PO SCH (10:47)
[2019-07-18] MEDS: hydroDIURIL 25 MG PO SCH (10:47)
[2019-07-18] MEDS: ENOXAPARIN SODIUM SQ SCH (10:48)
[2019-07-18] MEDS: Mucinex 600MG ER Tabs PO SCH ×2 (10:48→21:37)
[2019-07-18] MEDS: ULTRAM 50 MG PO PRN (14:54)
[2019-07-18 18:20] LABS: Appearance CLEAR (CLEAR); Bilirubin NEGATIVE (NEGATIVE); Blood SMALL Ery/ul (0-5); Glucose NEGATIVE (NEGATIVE); Ketones NEGATIVE (NEGATIVE); Leukocyte Esterase NEGATIVE (NEGATIVE); Nitrite NEGATIVE (NEGATIVE); Protein,Urine Dip NEGATIVE (Negative); Specific Gravity 1.009 (1.005-1.025); Urobilinogen NEGATIVE mg/dL (0-1)
[2019-07-18] MEDS ORDERED: OMNIPEN 1GM / NaCl 100ML 100 ML ONE (21:05)
[2019-07-18] MEDS: OMNIPEN 1 GM IV SCH (21:33)
[2019-07-18] MEDS: DESYREL 50 MG PO SCH (21:37)
[2019-07-18] MEDS: ZOCOR 20MG PO SCH (21:37)
[2019-07-18] MEDS ORDERED: LEVOFLOXACIN 750MG/150ML D5W 750 MG/150 ML BAG IV SCH (22:00)
--- NOTE | 2019-07-18 23:10 | PCM.NOTE ---
Date and Time: 07/18/192307 Subjective Assessment: Patient states he is just not feeling well.He is post op day 5-cholecystectomy gangrenous GB. WBC remains elevated . He has been on Vancomycin and Zosyn . Was tx for pneumonia on adm ,continues Neb tx sputum grew only yeast. Urinary retention requiring straight cath with 800 ml residual over the weekend and voiding better since on Flomax per patient. Denies abdominal pain, diarrhea has improved -C.Diff was negative but high WBC with increasing bands. UA and culture today, Blood cultures have been negative. Change antibiotic to Levaquin ,Amoxil and Flagyl IV.Asking surgery to reeval. Objective Exam General Appearance: lethargy, obese Neurologic Exam: alert, oriented x 3 Skin Exam: normal color, other (not diaphoretic but moist) Ears, Nose, Throat Exam: normal ENT inspection Neck Exam: normal inspection Respiratory Exam: diminished breath sounds (no wheezing or ronci) Cardiovascular Exam: regular rate/rhythm Gastrointestinal/Abdomen Exam: other (BS diminished,slightly distended, incisions healing no drainage,non tender) Extremity Exam: other (trace edema) OBJECTIVE DATA Vital Signs: Vital Signs - 24 hr Temp Pulse Resp BP Pulse Ox 07/18/19 20:00 98.8 F 86 20 124/73 92 L 07/18/19 19:25 96 H 18 92 L 07/18/19 16:00 99.5 F 92 H 18 124/66 92 L 07/18/19 15:00 88 18 91 L 07/18/19 12:00 18 07/18/19 11:51 99.3 F 84 18 129/62 92 L 07/18/19 10:36 86 18 92 L 07/18/19 08:00 17 07/18/19 07:55 98.8 F 82 17 118/63 92 L 07/18/19 07:22 82 18 91 L 07/18/19 04:10 98.5 F 86 17 128/74 96 07/18/19 04:00 17 07/18/19 00:00 16 07/17/19 23:43 98.2 F 93 H 16 122/70 95 Oxygen-Last 24 hours O2 Percentage 1 Liter = 24% O2 Percentage 1 Liter = 24% O2 Percentage 1 Liter = 24% Pain Assessment - Last Documented Pain Intensity 0 Pain Scale Used 0-10 Pain Scale Intake and Output: Intake & Output 07/16/19 07/17/19 07/18/19 07/19/19 11:59 11:59 11:59 11:59 Intake Total 2558 2807 2745 1652 Output Total 1220 3005 1700 1350 Balance 1335 -198 1045 302 Weight 100 kg 105.2 kg 107.5 kg Lab Results: Lab Results-Last 24 Hours 07/18/19 07/18/19 07/18/19 Range/Units 05:00 05:00 17:26 WBC 23.2 H (4.0-10.5) K/mm3 RBC 3.07 L (4.1-5.6) M/mm3 Hgb 8.9 L (12.5-18.0) gm/dl Hct 26.4 L (42-50) % MCV 86.0 (78-100) fl MCH 28.9 (26-32) pg MCHC 33.7 (32-36) g/dl RDW 14.2 H (11.5-14.0) % Plt Count 411 (150-450) K/mm3 MPV 9.2 (6-9.5) fl Segmented Neutrophils 90 H (36.-66.) % Band Neutrophils 2 (0.0-2.0) % Lymphocytes (Manual) 2 L (24-44) % Monocytes (Manual) 3 (0.0-12.0) % Eosinophils (Manual) 3 (0.00-3.0) % Platelet Estimate NORMAL (NORMAL) RBC Morphology ABNORMAL Poikilocytosis 1+ Anisocytosis 1+ Sodium 139 (137-145) mmol/L Potassium 4.1 (3.5-5.1) mmol/L Chloride 105 (98-107) mmol/L Carbon Dioxide 28 (22-30) mmol/L Anion Gap 9.7 (5-15) MEQ/L BUN 9 (9-20) mg/dL Creatinine 0.83 (0.66-1.25) mg/dL Estimated GFR > 60.0 ML/MIN Glucose 90 (74-106) mg/dL Calcium 8.4 (8.4-10.2) mg/dL Urine Color STRAW (YELLOW) Urine Appearance CLEAR (CLEAR) Urine pH 7.0 (5-6) Ur Specific [place] 1.009 (1.005-1.025) Urine Protein NEGATIVE (Negative) Urine Ketones NEGATIVE (NEGATIVE) Urine Blood SMALL (0-5) Jeffery/ul Urine Nitrite NEGATIVE (NEGATIVE) Urine Bilirubin NEGATIVE (NEGATIVE) Urine Urobilinogen NEGATIVE (0-1) mg/dL Ur Leukocyte Esterase NEGATIVE (NEGATIVE) Urine WBC (Auto) NONE (0-5) /HPF Urine RBC (Auto) NONE (0-2) /HPF U Epithel Cells (Auto) NONE (FEW) /HPF Urine Bacteria (Auto) NONE (NEGATIVE) /HPF Urine Glucose NEGATIVE (NEGATIVE) mg/dL Assessment/Plan (1) S/P laparoscopic cholecystectomy Current Visit: Yes Status: Acute Assessment & Plan: abdomen soft Code(s): Z90.49 - ACQUIRED ABSENCE OF OTHER SPECIFIED PARTS OF DIGESTIVE TRACT (2) Elevated WBC count Current Visit: Yes Status: Acute Assessment & Plan: IV antibiotics changed, WBC remains elevated Code(s): D72.829 - ELEVATED WHITE BLOOD CELL COUNT, UNSPECIFIED (3) Diarrhea Current Visit: Yes Status: Acute Assessment & Plan: Cdiff neg but start Flagyl since loose stools and elevated WBC continue Code(s): R19.7 - DIARRHEA, UNSPECIFIED
[2019-07-19] MEDS ORDERED: OMNIPEN 1GM / NaCl 100ML 100 ML ONE (04:54)
[2019-07-19] MEDS: D5W/0.45NS W/ 20mEq KCl 1000 ML 1,000 ML IV SCH (05:02)
[2019-07-19] MEDS: OMNIPEN 1 GM IV SCH (05:03)
[2019-07-19 05:04] LABS: Hematocrit 27.2 % (42-50); Hemoglobin 9.1 gm/dl (12.5-18.0); Mean Cell Volume 86.9 fl (78-100); Mean Corpuscular Hgb Concent. 33.5 g/dl (32-36); Mean Platelet Volume 9.7 fl (6-9.5); Platelet Count 454 K/mm3 (150-450); Red Blood Count 3.13 M/mm3 (4.1-5.6); Red Cell Distribution Width 14.1 % (11.5-14.0); White Blood Count 20.8 K/mm3 (4.0-10.5)
[2019-07-19 05:44] LABS: ALKALINE PHOSPHATASE 65 U/L (38-126); ANION GAP 10.9 MEQ/L (5-15); BLOOD UREA NITROGEN 9 mg/dL (9-20); CHLORIDE 108 mmol/L (98-107); Calcium 8.8 mg/dL (8.4-10.2); Carbon Dioxide 26 mmol/L (22-30); Creatinine 1 0.83 mg/dL (0.66-1.25); Glucose 86 mg/dL (74-106); NT PRO BNP 112 pg/mL (0-900); Potassium 4.1 mmol/L (3.5-5.1); SGOT/AST 30 U/L (17-59); SGPT/ALT 35 U/L (0-50); SODIUM 140 mmol/L (137-145)
[2019-07-19 07:05] LABS: Eosinophil 1 % (0.00-3.0); Lymphocytes 4 % (24-44); Monocyte 2 % (0.0-12.0); Neutrophils 93 % (36.-66.); Platelet Estimate NORMAL (NORMAL); Total Cells Counted 100; Toxic Granulation 1+
[2019-07-19] MEDS: DUONEB 0.5-3 MG/3 ml Neb IH SCH ×4 (07:58→19:27)
[2019-07-19] MEDS ORDERED: Sodium Chloride 100ML MINI-BAG PLUS 100 ML IV ONE (08:59)
[2019-07-19] MEDS: Mucinex 600MG ER Tabs PO SCH ×2 (11:08→21:40)
[2019-07-19] MEDS: Diflucan 100 MG PO SCH (11:08)
[2019-07-19] MEDS: ECOTRIN 81 MG PO SCH (11:08)
[2019-07-19] MEDS: hydroDIURIL 25 MG PO SCH (11:08)
[2019-07-19] MEDS: Flomax 0.4 MG PO SCH (11:09)
[2019-07-19] MEDS: ENOXAPARIN SODIUM SQ SCH (11:09)
[2019-07-19] MEDS: Cozaar 50 MG PO SCH (11:09)
[2019-07-19] MEDS: FLAGYL 500 MG IVPB 500 MG/100 ML BAG IV SCH ×2 (11:13→18:21)
[2019-07-19] MEDS: OMNIPEN 1GM / NaCl 100ML 100 ML IV SCH ×2 (14:27→21:39)
[2019-07-19] MEDS: ULTRAM 50 MG PO PRN (21:39)
[2019-07-19] MEDS: ZOCOR 20MG PO SCH (21:40)
[2019-07-19] MEDS: DESYREL 50 MG PO SCH (21:40)
[2019-07-19] MEDS: LEVOFLOXACIN 750MG/150ML D5W 750 MG/150 ML BAG IV SCH (22:30)
--- NOTE | 2019-07-19 22:52 | PCM.NOTE ---
Date and Time: 07/19/192246 Subjective Assessment: Patient states feeling better today . Surgeon examined patient today and says abdomen is soft ,no concerns, WBC was up to 23,000 yesterday but coming down today to 20.000. Afebrile today. Some nausea and decreased appetite staes smell of food makes him nauseated this evening.He had 3 loose stools today dark green . Objective Exam General Appearance: mild distress (nauseated from smelling supper) Neurologic Exam: oriented x 3 Skin Exam: normal color, dry Respiratory Exam: normal breath sounds Cardiovascular Exam: regular rate/rhythm Gastrointestinal/Abdomen Exam: soft (increased BS,nontender) OBJECTIVE DATA Vital Signs: Vital Signs - 24 hr Temp Pulse Resp BP Pulse Ox 07/19/19 20:00 20 07/19/19 19:39 99.3 F 89 20 123/71 94 L 07/19/19 19:29 86 18 92 L 07/19/19 16:00 99.0 F 89 18 134/71 90 L 07/19/19 15:40 85 20 07/19/19 12:00 99.1 F 99 H 17 129/66 92 L 07/19/19 11:06 84 16 07/19/19 08:00 16 07/19/19 07:58 80 16 97 07/19/19 07:26 98.9 F 82 17 130/72 94 L 07/19/19 04:00 98.4 F 80 22 130/66 92 L 07/19/19 00:00 98.1 F 87 18 108/66 92 L Pain Assessment - Last Documented Pain Intensity 0 Pain Scale Used 0-10 Pain Scale Intake and Output: Intake & Output 07/17/19 07/18/19 07/19/19 07/20/19 11:59 11:59 11:59 11:59 Intake Total 2807 2745 2888 809 Output Total 3005 1700 3700 700 Balance -198 1045 -812 109 Weight 105.2 kg 107.5 kg 99.4 kg Lab Results: Lab Results-Last 24 Hours 07/19/19 07/19/19 Range/Units 04:40 04:40 WBC 20.8 H (4.0-10.5) K/mm3 RBC 3.13 L (4.1-5.6) M/mm3 Hgb 9.1 L (12.5-18.0) gm/dl Hct 27.2 L (42-50) % MCV 86.9 (78-100) fl MCH 29.0 (26-32) pg MCHC 33.5 (32-36) g/dl RDW 14.1 H (11.5-14.0) % Plt Count 454 H (150-450) K/mm3 MPV 9.7 H (6-9.5) fl Segmented Neutrophils 93 H (36.-66.) % Lymphocytes (Manual) 4 L (24-44) % Monocytes (Manual) 2 (0.0-12.0) % Eosinophils (Manual) 1 (0.00-3.0) % Toxic Granulation 1+ Platelet Estimate NORMAL (NORMAL) RBC Morphology NORMAL Sodium 140 (137-145) mmol/L Potassium 4.1 (3.5-5.1) mmol/L Chloride 108 H (98-107) mmol/L Carbon Dioxide 26 (22-30) mmol/L Anion Gap 10.9 (5-15) MEQ/L BUN 9 (9-20) mg/dL Creatinine 0.83 (0.66-1.25) mg/dL Estimated GFR > 60.0 ML/MIN Glucose 86 (74-106) mg/dL Calcium 8.8 (8.4-10.2) mg/dL Total Bilirubin 0.50 (0.2-1.3) mg/dL AST 30 (17-59) U/L ALT 35 (0-50) U/L Alkaline Phosphatase 65 (38-126) U/L NT-Pro-B Natriuret Pep 112 (0-900) pg/mL Serum Total Protein 6.0 L (6.3-8.2) g/dL Albumin 3.0 L (3.5-5.0) g/dL Assessment/Plan (1) S/P laparoscopic cholecystectomy Current Visit: Yes Status: Acute Code(s): Z90.49 - ACQUIRED ABSENCE OF OTHER SPECIFIED PARTS OF DIGESTIVE TRACT (2) Elevated WBC count Current Visit: Yes Status: Acute Assessment & Plan: slight improvement with change is antibiotics yesterday Code(s): D72.829 - ELEVATED WHITE BLOOD CELL COUNT, UNSPECIFIED (3) Diarrhea Current Visit: Yes Status: Acute Assessment & Plan: started Flagyl yesterday and WBC has improved. Code(s): R19.7 - DIARRHEA, UNSPECIFIED (4) S/P laparoscopic cholecystectomy Current Visit: Yes Status: Acute Assessment & Plan: post op day 6 Code(s): Z90.49 - ACQUIRED ABSENCE OF OTHER SPECIFIED PARTS OF DIGESTIVE TRACT (5) Gangrenous cholecystitis Current Visit: Yes Status: Acute Code(s): K81.0 - ACUTE CHOLECYSTITIS (6) Pleural effusion, right Current Visit: Yes Status: Resolved Code(s): J90 - PLEURAL EFFUSION, NOT ELSEWHERE CLASSIFIED (7) Urinary retention due to benign prostatic hyperplasia Current Visit: Yes Status: Acute Assessment & Plan: improving on flomax Code(s): N40.1 - BENIGN PROSTATIC HYPERPLASIA WITH LOWER URINARY TRACT SYMP; R33.8 - OTHER RETENTION OF URINE
[2019-07-20] MEDS: FLAGYL 500 MG IVPB 500 MG/100 ML BAG IV SCH ×3 (02:07→17:38)
[2019-07-20] MEDS: OMNIPEN 1GM / NaCl 100ML 100 ML IV SCH ×3 (05:32→21:25)
[2019-07-20] MEDS: D5W/0.45NS W/ 20mEq KCl 1000 ML 1,000 ML IV SCH (05:40)
[2019-07-20 06:03] LABS: Granulocytes % 80.5 % (36.0-66.0); Hematocrit 27.5 % (42-50); Hemoglobin 9.2 gm/dl (12.5-18.0); Mean Corpuscular Hemoglobin 29.1 pg (26-32); Mean Corpuscular Hgb Concent. 33.5 g/dl (32-36); Mean Platelet Volume 9.3 fl (6-9.5); Platelet Count 484 K/mm3 (150-450); Red Blood Count 3.16 M/mm3 (4.1-5.6); Red Cell Distribution Width 14.3 % (11.5-14.0); White Blood Count 16.4 K/mm3 (4.0-10.5)
[2019-07-20 06:15] LABS: BLOOD UREA NITROGEN 13 mg/dL (9-20); CHLORIDE 106 mmol/L (98-107); Carbon Dioxide 26 mmol/L (22-30); Creatinine 1 0.83 mg/dL (0.66-1.25); Glucose 84 mg/dL (74-106); Potassium 4.3 mmol/L (3.5-5.1); SODIUM 138 mmol/L (137-145)
[2019-07-20] MEDS: DUONEB 0.5-3 MG/3 ml Neb IH SCH ×4 (06:49→19:38)
[2019-07-20 06:52] LABS: Eosinophil 1 % (0.00-3.0); Lymphocytes 8 % (24-44); Monocyte 1 % (0.0-12.0); Neutrophils 90 % (36.-66.); Total Cells Counted 100
[2019-07-20 06:53] LABS: ANISOCYTOSIS 1+; Platelet Estimate NORMAL (NORMAL); Poikilocytosis 1+; Polychromasia 1+
[2019-07-20] MEDS: Diflucan 100 MG PO SCH (09:30)
[2019-07-20] MEDS: hydroDIURIL 25 MG PO SCH (09:30)
[2019-07-20] MEDS: ENOXAPARIN SODIUM SQ SCH (09:30)
[2019-07-20] MEDS: Cozaar 50 MG PO SCH (09:30)
[2019-07-20] MEDS: Flomax 0.4 MG PO SCH (09:30)
[2019-07-20] MEDS: Mucinex 600MG ER Tabs PO SCH ×2 (09:30→21:20)
[2019-07-20] MEDS: ECOTRIN 81 MG PO SCH (09:30)
--- NOTE | 2019-07-20 10:08 | XRAY ---
Indication: Short of breath and cough. Comparison: July 15, 2019. PA/lateral chest unchanged again demonstrating mild bibasilar effusions/atelectasis. Remaining heart and lungs unremarkable. No new cardiopulmonary abnormalities.
[2019-07-20] MEDS: ZOFRAN ODT 4 MG PO PRN (17:38)
[2019-07-20 21:14] LABS: Hematocrit 25.3 % (42-50); Hemoglobin 8.4 gm/dl (12.5-18.0); Mean Cell Volume 87.2 fl (78-100); Mean Corpuscular Hgb Concent. 33.2 g/dl (32-36); Mean Platelet Volume 9.2 fl (6-9.5); Platelet Count 485 K/mm3 (150-450); Red Cell Distribution Width 14.1 % (11.5-14.0); White Blood Count 19.2 K/mm3 (4.0-10.5)
[2019-07-20] MEDS: Zanaflex 4 MG PO SCH (21:20)
[2019-07-20] MEDS: ZOCOR 20MG PO SCH (21:20)
[2019-07-20] MEDS: LEVOFLOXACIN 750MG/150ML D5W 750 MG/150 ML BAG IV SCH (21:21)
[2019-07-20 21:43] LABS: Mean Corpuscular Hemoglobin 28.9 pg (26-32)
[2019-07-20 22:40] LABS: Hematocrit 24.4 % (42-50); Hemoglobin 8.1 gm/dl (12.5-18.0)
[2019-07-20 22:42] LABS: ABO TYPING A; Antibody Screen NEGATIVE (NEGATIVE); RH TYPING POSITIVE
[2019-07-20 23:03] LABS: CROSS MATCH (PRBC) COMPATIBLE (COMPATIBLE)
[2019-07-20] MEDS ORDERED: Sodium Chloride 0.9% 1000 ML 1,000 ML ONE (23:04)
[2019-07-21] MEDS: FLAGYL 500 MG IVPB 500 MG/100 ML BAG IV SCH ×3 (02:05→18:31)
[2019-07-21] MEDS: Sodium Chloride 0.9% 1000 ML 1,000 ML IV SCH ×3 (03:39→16:36)
[2019-07-21] MEDS: OMNIPEN 1GM / NaCl 100ML 100 ML IV SCH ×3 (05:45→21:45)
[2019-07-21 06:01] LABS: Hematocrit 29.4 % (42-50); Hemoglobin 9.9 gm/dl (12.5-18.0); Mean Cell Volume 87.8 fl (78-100); Mean Corpuscular Hgb Concent. 33.7 g/dl (32-36); Mean Platelet Volume 9.3 fl (6-9.5); Platelet Count 438 K/mm3 (150-450); Red Blood Count 3.35 M/mm3 (4.1-5.6); Red Cell Distribution Width 14.5 % (11.5-14.0); White Blood Count 18.2 K/mm3 (4.0-10.5)
[2019-07-21 06:03] LABS: Mean Corpuscular Hemoglobin 29.5 pg (26-32)
[2019-07-21 06:12] LABS: ALKALINE PHOSPHATASE 62 U/L (38-126); ANION GAP 11.9 MEQ/L (5-15); BLOOD UREA NITROGEN 17 mg/dL (9-20); CHLORIDE 108 mmol/L (98-107); Calcium 8.7 mg/dL (8.4-10.2); Carbon Dioxide 23 mmol/L (22-30); Creatinine 1 0.73 mg/dL (0.66-1.25); Glucose 96 mg/dL (74-106); SGOT/AST 30 U/L (17-59); SGPT/ALT 40 U/L (0-50); SODIUM 139 mmol/L (137-145); Total Protein 6.1 g/dL (6.3-8.2)
[2019-07-21 06:39] LABS: Lymphocytes 4 % (24-44); Monocyte 1 % (0.0-12.0); Neutrophils 95 % (36.-66.); Total Cells Counted 100
[2019-07-21 06:40] LABS: ANISOCYTOSIS 1+; Platelet Estimate NORMAL (NORMAL); Poikilocytosis 1+
[2019-07-21] MEDS: DUONEB 0.5-3 MG/3 ml Neb IH SCH ×3 (07:07→19:25)
[2019-07-21] MEDS: ULTRAM 50 MG PO PRN ×3 (07:17→21:45)
--- NOTE | 2019-07-21 07:58 | CONS ---
CONSULT DATE: 07/20/2019 HISTORY: Jairo Moreira is a 63 year-old male known to me who has been hospitalized with complaints of right upper quadrant abdominal pain. The patient was noted to have acute cholecystitis and underwent cholecystectomy by Dr. Hargrove about two weeks ago. The patient has still been having some difficulty with pulmonary symptoms as well as with some cough. A chest x-ray performed on 07/15/2019 showed basilar atelectasis and right yue-diaphragmatic elevation. The patient has still been experiencing nausea. He does report shortness of breath with activity. His mucus has been fairly clear. The patient's hospital course was complicated by a brief run of atrial fibrillation for which he was treated with Cardizem. His pain has been well controlled since surgery. He does ambulate but does get short of breath. PAST MEDICAL HISTORY: Positive for history of hypertension, hyperlipidemia and insomnia. PAST SURGICAL HISTORY: As above. PERSONAL AND SOCIAL HISTORY: Noted. MEDICATIONS: Home and current medications are reviewed. ALLERGIES: PERCOCET. NORCO. PHYSICAL EXAMINATION: This is a middle aged man who appears not in any acute distress. VITAL SIGNS: Temperature 98.4F, heart rate 86, blood pressure 122/61 mm of Mercury. Saturating 94%. HEENT: Normocephalic. Oral exam is unremarkable. NECK: Supple. CVS: First and second heart sounds are normal, regular, rhythmic. RESPIRATORY: Shows diminished to absent breath sounds on the right side almost assisted up there. Significantly diminished left base as well. ABDOMEN: Soft, status post surgery. EXTREMITIES: 1+ edema is noted. LABORATORY DATA AND TESTS: White count 16.4, hemoglobin 9.2, hematocrit 27, PLT 484,000. Sodium 138, potassium 4.3, chloride 106, bicarb 26, glucose 84, BUN 13, creatinine 0.8. Chest x-ray reviewed. ASSESSMENT: This is a 63 year old man: 1) Admitted after undergoing laparoscopic cholecystectomy noted to have diminished breath sounds bilaterally suggestive of bilateral pleural effusion, subdiaphragmatic on the right? 2) Mild hypoxemia. 3) Comorbid as listed above. RECOMMENDATIONS: The patient still has significantly diminished breath sounds at lung bases. He has been using bronchodilators and incentive spirometry. Will recommend CT chest which will allow quantitative analysis of effusion based on which diagnostic/therapeutic recommendations can be made. I agree with other treatment in the meantime. I have requested a CT chest without contrast. I will re-evaluate the patient in the a.m. Thank you, Dr. Stanford, for allowing me to participate in the care of this patient.
--- NOTE | 2019-07-21 08:44 | XRAY ---
Indication: Short of breath. Nausea and vomiting. Status post cholecystectomy. Multiple contiguous axial images obtained through the chest without contrast as ordered. Comparison: July 08, 2019. Lungs now demonstrates bibasilar atelectasis, right greater than left. Also new tiny right effusion. Again minimal pulmonary emphysema in the upper lungs and a few tiny scattered calcified granulomas. Heart is not enlarged. Aorta is normal in course and caliber. Stable right infrahilar calcified nodes. No pathologic mediastinal lymphadenopathy. Bony thorax intact again with mild degenerative changes throughout the spine. Limited upper abdomen demonstrates interval cholecystectomy with small free air underneath the right hemidiaphragm and small perihepatic free fluid. Also a 2.7 x 4.8 x 5.1 cm right upper quadrant walled off fluid collection anteriorly adjacent to the antral portion of the stomach worrisome for abscess. Stomach is moderately fluid distended. Impression: 1. New bibasilar atelectasis, right greater than left with tiny right effusion. 2. Stable minimal pulmonary emphysema and evidence for old granulomatous disease. 3. Status post cholecystectomy with small free air and small perihepatic free fluid. Also right upper quadrant walled off fluid collection as detailed worrisome for abscess. CTDI 17.77
[2019-07-21 09:27] LABS: Hematocrit 28.5 % (42-50); Hemoglobin 9.6 gm/dl (12.5-18.0)
[2019-07-21] MEDS: Mucinex 600MG ER Tabs PO SCH ×2 (10:02→21:45)
[2019-07-21] MEDS: Cozaar 50 MG PO SCH (10:02)
[2019-07-21] MEDS: Diflucan 100 MG PO SCH (10:03)
[2019-07-21] MEDS: Protonix 40MG Tablet PO SCH (10:03)
[2019-07-21] MEDS: hydroDIURIL 25 MG PO SCH (10:03)
[2019-07-21] MEDS: Flomax 0.4 MG PO SCH (10:03)
[2019-07-21] MEDS: ENOXAPARIN SODIUM SQ SCH (10:06)
[2019-07-21] MEDS: ECOTRIN 81 MG PO SCH (10:06)
[2019-07-21 11:41] LABS: 027 TOX PROD PRESUMPTIVE NEGATIVE (NEGATIVE); TOXIGENIC C. DIFF ORG NEGATIVE (NEGATIVE)
[2019-07-21] MEDS ORDERED: XYLOCAINE 1% HCL 20 ML MDV IJ ONE (12:58)
--- NOTE | 2019-07-21 15:07 | XRAY ---
Indication: Right upper quadrant abscess. Informed consent obtained. Patient placed on the CT table in a supine position. CT scan was performed through the abdomen for localization using cutaneous BBs. The abdominal wall was then prepped and draped in sterile fashion. 1% lidocaine plain used for local anesthesia. Tiny skin incision made. A 18-gauge percutaneous needle was then inserted with the tip advanced into the abdominal abscess using CT guidance. A thin floppy-tipped guidewire was then inserted. The track was then dilated up to 8 Albanian. Ultimately a 8.5 Albanian pigtail drainage catheter was inserted over the guidewire. The guidewire was removed and the pigtail was formed and locked. Repeat CT imaging demonstrated good catheter tip placement. Dark red tinged foul-smelling fluid was draining. Ultimately the catheter was secured using a Felix disc and attached to a DOM drainage device. Patient was discharged to to his room in good condition. Impression: Technically successful CT-guided insertion of a percutaneous drainage catheter for a right upper quadrant abdomen abscess. No immediate complications. CT DI 23.57
[2019-07-21 19:55] LABS: Hematocrit 28.7 % (42-50); Hemoglobin 9.8 gm/dl (12.5-18.0)
[2019-07-21] MEDS: ZOFRAN ODT 4 MG PO PRN (20:24)
[2019-07-21] MEDS: LEVOFLOXACIN 750MG/150ML D5W 750 MG/150 ML BAG IV SCH (21:44)
[2019-07-21] MEDS: Zanaflex 4 MG PO SCH (21:45)
[2019-07-21] MEDS: ZOCOR 20MG PO SCH (21:45)
[2019-07-22] MEDS: ULTRAM 50 MG PO PRN ×2 (01:51→07:29)
[2019-07-22] MEDS: FLAGYL 500 MG IVPB 500 MG/100 ML BAG IV SCH ×3 (01:52→17:09)
[2019-07-22 05:11] LABS: Hemoglobin 8.7 gm/dl (12.5-18.0); Mean Cell Volume 88.4 fl (78-100); Mean Corpuscular Hgb Concent. 33.5 g/dl (32-36); Mean Platelet Volume 9.1 fl (6-9.5); Platelet Count 412 K/mm3 (150-450); Red Blood Count 2.94 M/mm3 (4.1-5.6); Red Cell Distribution Width 14.2 % (11.5-14.0); White Blood Count 20.1 K/mm3 (4.0-10.5)
[2019-07-22 05:14] LABS: Mean Corpuscular Hemoglobin 29.5 pg (26-32)
[2019-07-22 05:20] LABS: ALBUMIN 2.8 g/dL (3.5-5.0); ALKALINE PHOSPHATASE 59 U/L (38-126); ANION GAP 11.5 MEQ/L (5-15); BLOOD UREA NITROGEN 15 mg/dL (9-20); CHLORIDE 107 mmol/L (98-107); Calcium 8.3 mg/dL (8.4-10.2); Carbon Dioxide 21 mmol/L (22-30); Creatinine 1 0.62 mg/dL (0.66-1.25); Glucose 100 mg/dL (74-106); Potassium 3.8 mmol/L (3.5-5.1); SGOT/AST 31 U/L (17-59); SGPT/ALT 40 U/L (0-50); SODIUM 136 mmol/L (137-145); Total Protein 5.7 g/dL (6.3-8.2)
[2019-07-22] MEDS: OMNIPEN 1GM / NaCl 100ML 100 ML IV SCH ×3 (05:40→22:31)
[2019-07-22] MEDS: Sodium Chloride 0.9% 1000 ML 1,000 ML IV SCH ×2 (05:40→22:20)
[2019-07-22 05:49] LABS: BAND 1 % (0.0-2.0); Lymphocytes 15 % (24-44); Monocyte 3 % (0.0-12.0); Neutrophils 81 % (36.-66.); Polychromasia RARE; Total Cells Counted 100
[2019-07-22 05:50] LABS: Platelet Estimate NORMAL (NORMAL)
[2019-07-22] MEDS: DUONEB 0.5-3 MG/3 ml Neb IH SCH ×5 (06:51→18:57)
[2019-07-22] MEDS: ZOFRAN ODT 4 MG PO PRN ×2 (07:29→13:26)
--- NOTE | 2019-07-22 10:17 | XRAY ---
Indication: Left knee pain and swelling. Two-dimensional sonogram and color Doppler imaging of the major venous vessels of the left leg was performed. Comparison: None No thrombus seen in the examined deep venous vessels of the left leg including greater saphenous vein. Veins demonstrate normal compressibility. Venous waveforms are normal with and without augmentation. Incidental 3.7 x 2.8 x 1.8 cm Suero's cyst. Impression: Left leg negative for DVT. Incidental Suero's cyst.
[2019-07-22] MEDS: TORAdol 30 mg Injection IV SCH ×2 (10:22→17:04)
[2019-07-22] MEDS: ENOXAPARIN SODIUM SQ SCH (10:30)
[2019-07-22] MEDS: hydroDIURIL 25 MG PO SCH (10:31)
[2019-07-22] MEDS: Flomax 0.4 MG PO SCH (10:31)
[2019-07-22] MEDS: ECOTRIN 81 MG PO SCH (10:31)
[2019-07-22] MEDS: Mucinex 600MG ER Tabs PO SCH ×2 (10:32→22:33)
[2019-07-22] MEDS: Diflucan 100 MG PO SCH (10:32)
[2019-07-22] MEDS: Protonix 40MG Tablet PO SCH (10:32)
[2019-07-22] MEDS: Cozaar 50 MG PO SCH (10:32)
--- NOTE | 2019-07-22 10:35 | CONS ---
CONSULT DATE: 07/21/2019 REASON FOR CONSULT: Intra-abdominal possible abscess. HISTORY: The patient had a necrotic gangrenous gallbladder removed. He did have a drain placed. The drain was removed two days ago. He now has small pockets 4 to 5 cm fairly close to where the old drain was. It was drained by IR (interventional radiology) today and just a small amount like an ounce of fluid was obtained. Drain was left in place and hooked to Naren-Saldana bulb this was inspected at the bedside. It had serosanguineous and looks totally innocent. His abdomen is totally soft. He is alert and oriented. He did have a bloody bowel movement yesterday but then was followed by bilious bowel movement today. He does have a swollen left knee this is probably gout. It is acute. It is hot. It is not red. It is swollen. He has not had it before. He does not have a right leg. IMPRESSION: The patient has had a very complicated gangrenous gallbladder. He is having some issues postoperatively which were not unexpected. At this time I think his intra-abdominal situation is excellent. He is not bleeding. I think I will hold on endoscopy. I think the IR drain is all that is necessary for this pocket. We will follow along.
[2019-07-22] MEDS ORDERED: Sodium Chloride 0.9% 500 ML 500 ML IV ONE ×3 (13:59→23:25)
--- NOTE | 2019-07-22 14:51 | CONS ---
DATE: 07/22/19 FOLLOW-UP NOTE: Mr. Moreira was evaluated by me 2 days ago in the evening. He was noted to have absent breath sounds on the right side almost longterm through and a CT chest was obtained without contrast. I got called in to the report about 2 hours later by nursing staff reporting the findings of possible subdiaphragmatic collection abscess at the site of recent surgery. I advised that the same report be immediately reported to the surgeons on-call and have them address appropriately. Yesterday, I had been in touch with the hospital staff throughout the day reviewing his reports and various procedures. Patient had a drain placed by interventional radiology. This has drained a small amount of fluid. He did report left knee pain this morning and had Doppler's as well as uric acid sent. The uric acid level is 3.4 which is lower limits of normal and the Doppler's are currently awaited. Today, patient looks and feels much better. He is able to take deeper breaths. He does report mild nausea, but his appetite is getting better as well. Vital signs are noted. HEENT: Normocephalic. Oral exam is unremarkable. NECK: Supple. CVS: 1st and 2nd heart sounds normal, regular rhythm. RESPIRATORY: Shows definitely improved breath sounds with occasional crackles at right lung base. ABDOMEN: Obese, post-surgical, right DOM drain in place. EXTREMITIES: Lower extremities show no edema. Labs, x-rays, and radiology tests were all reviewed. ASSESSMENT: 1. THIS IS A 63 Y/O MALE ADMITTED WITH POST-OP SYMPTOMS. APPEARS TO HAVE A SUBDIAPHRAGMATIC COLLECTION RATHER THAN SUBPLEURAL COLLECTION WHICH HAS BEEN MANAGED BY SURGERY. 2. MILD ATELECTASIS AND HYPOXEMIA, STABLE. 3. MILD CHRONIC OBSTRUCTIVE PULMONARY DISEASE, LARGELY ASYMPTOMATIC. RECOMMENDATIONS: I discussed the above findings and plan with patient and . Clearly the management at this point is surgical. I will be available over the weekend if needed and will follow patient if he is still in the hospital on Thursday. However, further assessment regarding drainage of abscess and appropriate antibiotics until complete resolution is seen is per surgery.
[2019-07-22] MEDS ORDERED: Sodium Chloride 0.9% 1000 ML 1,000 ML IV STA (15:23)
[2019-07-22 16:06] LABS: Hematocrit 21.4 % (42-50); Hemoglobin 7.2 gm/dl (12.5-18.0); Mean Cell Volume 88.4 fl (78-100); Mean Corpuscular Hemoglobin 29.7 pg (26-32); Mean Corpuscular Hgb Concent. 33.6 g/dl (32-36); Mean Platelet Volume 9.4 fl (6-9.5); Platelet Count 422 K/mm3 (150-450); Red Blood Count 2.42 M/mm3 (4.1-5.6); Red Cell Distribution Width 14.4 % (11.5-14.0); White Blood Count 20.9 K/mm3 (4.0-10.5)
[2019-07-22] MEDS ORDERED: IMODIUM 2 MG PO PRN (16:20)
[2019-07-22 16:24] LABS: ALBUMIN 2.3 g/dL (3.5-5.0); ALKALINE PHOSPHATASE 51 U/L (38-126); ANION GAP 9.7 MEQ/L (5-15); BLOOD UREA NITROGEN 19 mg/dL (9-20); CHLORIDE 110 mmol/L (98-107); Calcium 7.8 mg/dL (8.4-10.2); Carbon Dioxide 21 mmol/L (22-30); Creatinine 1 0.55 mg/dL (0.66-1.25); Glucose 132 mg/dL (74-106); Potassium 3.7 mmol/L (3.5-5.1); SGOT/AST 26 U/L (17-59); SGPT/ALT 31 U/L (0-50); SODIUM 137 mmol/L (137-145); Total Protein 4.6 g/dL (6.3-8.2)
[2019-07-22] MEDS ORDERED: PHARMACY DOSING REQUEST MC ONE (16:38)
[2019-07-22] MEDS: INTRALIPID 20% 250 ML 250 ML, TPN Electrolytes 20 ML, Multitrace-4 Conc Vial 1 ML*** 1 ... IV SCH ×6 (18:43)
--- NOTE | 2019-07-22 19:28 | XRAY ---
Indication: Increasing abdominal pain. Status post CT-guided abdomen abscess drainage. Multiple contiguous axial images obtained through the abdomen and pelvis without contrast as ordered. Comparison: July 11, [address] chest July 20, 2019. Lung bases again demonstrates bibasilar atelectasis right greater than left with tiny right effusion. Also stable tiny right lower lobe and right infrahilar calcified granulomas. Heart is not enlarged. New right quadrant percutaneous pigtail drainage catheter drains previous abscess today measuring 2.1 x 3.8 x 3.7 cm. This abscess measured 2.7 x 4.8 x 5.1 cm yesterday. Again cholecystectomy with stable tiny perihepatic fluid and small free air under the right hemidiaphragm. No new walled off fluid collection or free air. Stomach again mildly fluid distended, but less than before. Noncontrasted stomach and bowel loops appear nonobstructed. Colon now demonstrates fluid leveling throughout favoring diarrhea. Stable descending and sigmoid diverticulosis. Urinary bladder is now massively distended either outlet obstruction versus neurogenic bladder. Remaining pancreas, spleen, adrenal glands, kidneys, and ureters appear unremarkable. Stable mild aortoiliac calcifications without AAA. Impression: 1. New right upper quadrant percutaneous pigtail drainage catheter. Abscess appears smaller with respect to yesterday's exam. There still remains tiny perihepatic free fluid and small free air. 2. New massively distended urinary bladder. Rule out outlet obstruction versus neurogenic bladder. 3. The colon demonstrates new fluid leveling throughout favoring diarrhea. Stable colonic diverticulosis. 4. Stable bibasilar atelectasis and tiny right effusion. CTDI 23.62
[2019-07-22] MEDS: Zanaflex 4 MG PO SCH (22:34)
[2019-07-22] MEDS: ZOCOR 20MG PO SCH (22:34)
[2019-07-22] MEDS ORDERED: Sodium Chloride 0.9% 500 ML 500 ML IV SCH (23:30)
[2019-07-22] MEDS: LEVOFLOXACIN 750MG/150ML D5W 750 MG/150 ML BAG IV SCH (23:48)
[2019-07-23] MEDS: TORAdol 30 mg Injection IV SCH ×2 (00:29→06:45)
[2019-07-23] MEDS: FLAGYL 500 MG IVPB 500 MG/100 ML BAG IV SCH ×3 (02:10→17:41)
[2019-07-23 04:43] LABS: Hematocrit 24.4 % (42-50); Hemoglobin 8.1 gm/dl (12.5-18.0); Mean Cell Volume 89.7 fl (78-100); Mean Corpuscular Hgb Concent. 33.2 g/dl (32-36); Mean Platelet Volume 9.2 fl (6-9.5); Platelet Count 334 K/mm3 (150-450); Red Blood Count 2.72 M/mm3 (4.1-5.6); Red Cell Distribution Width 14.2 % (11.5-14.0); White Blood Count 19.2 K/mm3 (4.0-10.5)
[2019-07-23 04:47] LABS: Mean Corpuscular Hemoglobin 29.7 pg (26-32)
[2019-07-23 04:56] LABS: ALBUMIN 2.3 g/dL (3.5-5.0); ANION GAP 8.5 MEQ/L (5-15); BLOOD UREA NITROGEN 26 mg/dL (9-20); CHLORIDE 111 mmol/L (98-107); Calcium 7.9 mg/dL (8.4-10.2); Carbon Dioxide 22 mmol/L (22-30); Creatinine 1 0.67 mg/dL (0.66-1.25); Glucose 125 mg/dL (74-106); Potassium 3.6 mmol/L (3.5-5.1); SODIUM 138 mmol/L (137-145); Total Protein 4.9 g/dL (6.3-8.2)
[2019-07-23 06:00] LABS: BAND 5 % (0.0-2.0); Eosinophil 2 % (0.00-3.0); Lymphocytes 8 % (24-44); Metamyelocyte 2 %; Monocyte 4 % (0.0-12.0); Neutrophils 79 % (36.-66.); Platelet Estimate NORMAL (NORMAL); Total Cells Counted 100
[2019-07-23] MEDS: OMNIPEN 1GM / NaCl 100ML 100 ML IV SCH ×3 (06:10→22:04)
[2019-07-23] MEDS: DUONEB 0.5-3 MG/3 ml Neb IH SCH ×4 (07:10→18:48)
[2019-07-23] MEDS: Sodium Chloride 0.9% 1000 ML 1,000 ML IV SCH (07:40)
[2019-07-23 08:56] LABS: Hematocrit 26.7 % (42-50); Hemoglobin 8.8 gm/dl (12.5-18.0)
[2019-07-23] MEDS: Diflucan 100 MG PO SCH (09:51)
[2019-07-23] MEDS: PROTONIX 40 MG IV IV SCH (09:51)
[2019-07-23] MEDS: Flomax 0.4 MG PO SCH (09:51)
[2019-07-23] MEDS: Mucinex 600MG ER Tabs PO SCH ×2 (09:51→22:04)
[2019-07-23] MEDS: Tums EX 750 MG PO PRN (09:55)
[2019-07-23] MEDS: ECOTRIN 81 MG PO SCH (09:57)
[2019-07-23] MEDS: ENOXAPARIN SODIUM SQ SCH (09:57)
[2019-07-23] MEDS: hydroDIURIL 25 MG PO SCH (10:00)
[2019-07-23] MEDS: Cozaar 50 MG PO SCH (10:00)
[2019-07-23 10:44] LABS: ABO TYPING A; Antibody Screen NEGATIVE (NEGATIVE); RH TYPING POSITIVE
[2019-07-23 10:46] LABS: CROSS MATCH (PRBC) COMPATIBLE (COMPATIBLE)
--- NOTE | 2019-07-23 11:41 | PCM.NOTE ---
Date and Time: 07/23/19 1136 Subjective Assessment: Patient seen and examined this am. Patient reports that he felt "funny in his head" yesterday. He then described it as being light headed. Patient reports that he has some shortness of breath that has gotten worse during his hospital stay. He reports some nausea and one episode of vomiting. Patient required straight cath prior to his drain placement. reports his urine output was good but then has decreased. Patient reports that he has become weak with getting up and is only using bedside commode at this time. No other reported concerns. <FAHADDEYVI - Last Filed: 07/23/19 11:52> Date and Time: 08/01/19 1633 Subjective Assessment: Agree with A&P as entered. <ADAIR BREWER - Last Filed: 08/01/19 16:33> - Review of Systems Constitutional: Weakness, No Fever, No Chills Eyes: No Vision Changes, No Double Vision Ears, Nose, & Throat: No Throat Pain Respiratory: Short Of Breath, No Cough Cardiac: No Chest Pain Abdominal/Gastrointestinal: Abdominal Pain, Nausea, Vomiting (Reported one episode of vomiting), Diarrhea, Melena, No Constipation Genitourinary Symptoms: Urinary Retention (This was noted on CT scan. ) Neurological: Other (lightheaded) Hematologic/Lymphatic: Anemia <DEYVI VÁSQUEZ - Last Filed: 07/23/19 11:52> Objective Exam General Appearance: mild distress, other (Patient looks unwell) Neurologic Exam: alert, oriented x 3, cooperative Skin Exam: normal color, warm, dry, pale Eye Exam: eyes nml inspection Ears, Nose, Throat Exam: other (Whitish/green coating on tongue) Neck Exam: normal inspection Respiratory Exam: normal breath sounds, lungs clear Cardiovascular Exam: regular rate/rhythm Gastrointestinal/Abdomen Exam: soft, tenderness (at drain site) Extremity Exam: normal inspection, No pedal edema Rectal Exam: black stool (Reported by nursing staff) <DEYVI VÁSQUEZ - Last Filed: 07/23/19 11:52> OBJECTIVE DATA Vital Signs: Vital Signs - 24 hr Temp Pulse Resp BP Pulse Ox 07/23/19 11:33 99.4 F 85 18 126/64 96 07/23/19 11:15 868 H 18 97 07/23/19 07:35 18 07/23/19 07:23 86 18 97 07/23/19 07:22 98.4 F 86 18 130/63 97 07/23/19 07:12 97 07/23/19 04:00 98.5 F 88 18 114/58 98 07/23/19 00:00 98.1 F 90 14 103/60 97 07/22/19 20:00 98.2 F 94 H 18 116/59 98 07/22/19 18:57 95 H 14 97 07/22/19 16:53 86 18 96 07/22/19 16:00 98.4 F 92 H 20 121/67 95 07/22/19 12:00 98.8 F 101 H 18 112/59 94 L Oxygen-Last 24 hours O2 Percentage 2 Liters = 28% O2 Percentage 2 Liters = 28% O2 Percentage 2 Liters = 28% O2 Percentage 2 Liters = 28% Oxygen Flowrate (L/min)-RT 2 Oxygen Flowrate (L/min)-RT 2 Pain Assessment - Last Documented Pain Intensity 0 Pain Scale Used 0-10 Pain Scale Intake and Output: Intake & Output 07/20/19 07/21/19 07/22/19 07/23/19 11:59 11:59 11:59 11:59 Intake Total 1830 204 2967 2823 Output Total 8898 3550 9155 2936 Balance -643 -7751 572 -229 Weight 96.4 kg 96.2 kg 95.1 kg 95 kg Lab Results: Accuchecks Accucheck Value: 133 Accucheck Value: 127 Lab Results-Last 24 Hours 07/22/19 07/22/19 07/22/19 Range/Units 14:00 15:50 15:50 WBC 20.9 H (4.0-10.5) K/mm3 RBC 2.42 L (4.1-5.6) M/mm3 Hgb 7.2 L (12.5-18.0) gm/dl Hct 21.4 L (42-50) % MCV 88.4 (78-100) fl MCH 29.7 (26-32) pg MCHC 33.6 (32-36) g/dl RDW 14.4 H (11.5-14.0) % Plt Count 422 (150-450) K/mm3 MPV 9.4 (6-9.5) fl Segmented Neutrophils (36.-66.) % Band Neutrophils (0.0-2.0) % Lymphocytes (Manual) (24-44) % Monocytes (Manual) (0.0-12.0) % Eosinophils (Manual) (0.00-3.0) % Metamyelocytes % Platelet Estimate (NORMAL) RBC Morphology Sodium 137 (137-145) mmol/L Potassium 3.7 (3.5-5.1) mmol/L Chloride 110 H (98-107) mmol/L Carbon Dioxide 21 L (22-30) mmol/L Anion Gap 9.7 (5-15) MEQ/L BUN 19 (9-20) mg/dL Creatinine 0.55 L (0.66-1.25) mg/dL Estimated GFR > 60.0 ML/MIN Glucose 132 H (74-106) mg/dL Lactic Acid (0.4-2.0) Calcium 7.8 L (8.4-10.2) mg/dL Magnesium (1.6-2.3) mg/dL Total Bilirubin 0.40 (0.2-1.3) mg/dL AST 26 (17-59) U/L ALT 31 (0-50) U/L Alkaline Phosphatase 51 (38-126) U/L Troponin I (0.000-0.034) ng/mL Serum Total Protein 4.6 L (6.3-8.2) g/dL Albumin 2.3 L (3.5-5.0) g/dL Stool Occult Bld Scrn POSITIVE A (NEGATIVE) ABO Group Rh Factor Antibody Screen (NEGATIVE) Crossmatch (COMPATIBLE) 07/22/19 07/22/19 07/22/19 Range/Units 15:50 17:33 17:33 WBC (4.0-10.5) K/mm3 RBC (4.1-5.6) M/mm3 Hgb (12.5-18.0) gm/dl Hct (42-50) % MCV (78-100) fl MCH (26-32) pg MCHC (32-36) g/dl RDW (11.5-14.0) % Plt Count (150-450) K/mm3 MPV (6-9.5) fl Segmented Neutrophils (36.-66.) % Band Neutrophils (0.0-2.0) % Lymphocytes (Manual) (24-44) % Monocytes (Manual) (0.0-12.0) % Eosinophils (Manual) (0.00-3.0) % Metamyelocytes % Platelet Estimate (NORMAL) RBC Morphology Sodium (137-145) mmol/L Potassium (3.5-5.1) mmol/L Chloride (98-107) mmol/L Carbon Dioxide (22-30) mmol/L Anion Gap (5-15) MEQ/L BUN (9-20) mg/dL Creatinine (0.66-1.25) mg/dL Estimated GFR ML/MIN Glucose (74-106) mg/dL Lactic Acid (0.4-2.0) Calcium (8.4-10.2) mg/dL Magnesium (1.6-2.3) mg/dL Total Bilirubin (0.2-1.3) mg/dL AST (17-59) U/L ALT (0-50) U/L Alkaline Phosphatase (38-126) U/L Troponin I < 0.012 (0.000-0.034) ng/mL Serum Total Protein (6.3-8.2) g/dL Albumin (3.5-5.0) g/dL Stool Occult Bld Scrn (NEGATIVE) ABO Group Rh Factor Antibody Screen (NEGATIVE) Crossmatch COMPATIBLE COMPATIBLE (COMPATIBLE) 07/23/19 07/23/19 07/23/19 Range/Units 04:40 04:40 08:10 WBC 19.2 H (4.0-10.5) K/mm3 RBC 2.72 L (4.1-5.6) M/mm3 Hgb 8.1 L (12.5-18.0) gm/dl Hct 24.4 L (42-50) % MCV 89.7 (78-100) fl MCH 29.7 (26-32) pg MCHC 33.2 (32-36) g/dl RDW 14.2 H (11.5-14.0) % Plt Count 334 (150-450) K/mm3 MPV 9.2 (6-9.5) fl Segmented Neutrophils 79 H (36.-66.) % Band Neutrophils 5 H (0.0-2.0) % Lymphocytes (Manual) 8 L (24-44) % Monocytes (Manual) 4 (0.0-12.0) % Eosinophils (Manual) 2 (0.00-3.0) % Metamyelocytes 2 % Platelet Estimate NORMAL (NORMAL) RBC Morphology NORMAL Sodium 138 (137-145) mmol/L Potassium 3.6 (3.5-5.1) mmol/L Chloride 111 H (98-107) mmol/L Carbon Dioxide 22 (22-30) mmol/L Anion Gap 8.5 (5-15) MEQ/L BUN 26 H (9-20) mg/dL Creatinine 0.67 (0.66-1.25) mg/dL Estimated GFR > 60.0 ML/MIN Glucose 125 H (74-106) mg/dL Lactic Acid 1.4 (0.4-2.0) Calcium 7.9 L (8.4-10.2) mg/dL Magnesium 2.0 (1.6-2.3) mg/dL Total Bilirubin (0.2-1.3) mg/dL AST (17-59) U/L ALT (0-50) U/L Alkaline Phosphatase (38-126) U/L Troponin I (0.000-0.034) ng/mL Serum Total Protein 4.9 L (6.3-8.2) g/dL Albumin 2.3 L (3.5-5.0) g/dL Stool Occult Bld Scrn (NEGATIVE) ABO Group Rh Factor Antibody Screen (NEGATIVE) Crossmatch (COMPATIBLE) 07/23/19 07/23/19 07/23/19 Range/Units 08:20 08:20 08:30 WBC (4.0-10.5) K/mm3 RBC (4.1-5.6) M/mm3 Hgb 8.8 L (12.5-18.0) gm/dl Hct 26.7 L (42-50) % MCV (78-100) fl MCH (26-32) pg MCHC (32-36) g/dl RDW (11.5-14.0) % Plt Count (150-450) K/mm3 MPV (6-9.5) fl Segmented Neutrophils (36.-66.) % Band Neutrophils (0.0-2.0) % Lymphocytes (Manual) (24-44) % Monocytes (Manual) (0.0-12.0) % Eosinophils (Manual) (0.00-3.0) % Metamyelocytes % Platelet Estimate (NORMAL) RBC Morphology Sodium (137-145) mmol/L Potassium (3.5-5.1) mmol/L Chloride (98-107) mmol/L Carbon Dioxide (22-30) mmol/L Anion Gap (5-15) MEQ/L BUN (9-20) mg/dL Creatinine (0.66-1.25) mg/dL Estimated GFR ML/MIN Glucose (74-106) mg/dL Lactic Acid (0.4-2.0) Calcium (8.4-10.2) mg/dL Magnesium (1.6-2.3) mg/dL Total Bilirubin (0.2-1.3) mg/dL AST (17-59) U/L ALT (0-50) U/L Alkaline Phosphatase (38-126) U/L Troponin I (0.000-0.034) ng/mL Serum Total Protein (6.3-8.2) g/dL Albumin (3.5-5.0) g/dL Stool Occult Bld Scrn (NEGATIVE) ABO Group A Rh Factor POSITIVE Antibody Screen NEGATIVE (NEGATIVE) Crossmatch COMPATIBLE COMPATIBLE (COMPATIBLE) Radiology Exams: Radiology Procedures Category Date Time Status ABDOMEN AND PELVIS W/0 CONTRAS [CT] Stat Exams 07/22/19 15:18 Completed Portable Chest [CHEST 1 VIEW (PORTABLE)] Stat Exams 07/23/19 09:46 Taken VENOUS UNILAT/LIMITED EXTREMIT [US] Routine Exams 07/22/19 09:37 Completed <DEYVI VÁSQUEZ - Last Filed: 07/23/19 11:52> Vital Signs: Pain Assessment - Last Documented Pain Intensity 0 Pain Scale Used 0-10 Pain Scale <ADAIR BREWER - Last Filed: 08/01/19 16:33> Assessment/Plan (1) Anemia due to GI blood loss Status: Acute Assessment & Plan: Patient has required blood transfusion with little improvement of anemia. Patient continues to have melena. Patient's VS are currently stable. Patient is receiving IV protonix. Ketorlac was discontinued as a risk factor for worsening GI bleed symptoms. Will get repeat hgb and consider transfer for possible EGD/ colonoscopy if hgb continues to drop or if patient starts having unstable VS. Code(s): D50.0 - IRON DEFICIENCY ANEMIA SECONDARY TO BLOOD LOSS (CHRONIC) (2) Distended bladder Status: Acute Assessment & Plan: Patient has required straight catheterization prior to his drain placement. Patient had CT last night that showed bladder distention of unknown etiology. Ordered straight cath for this am if problem persist will have to consider anchoring toscano and possible follow up with a urologist. Code(s): N32.89 - OTHER SPECIFIED DISORDERS OF BLADDER (3) Diarrhea Status: Acute Assessment & Plan: Patient has had neg workup for cdiff. Patient continues to have melena. Will continue to monitor for BMs. Patient is getting IV fluids and will continue to monitor electrolytes as well. Code(s): R19.7 - DIARRHEA, UNSPECIFIED (4) Elevated WBC count Status: Acute Assessment & Plan: Work up thus far has been negative for cultures performed and cdiff was neg as well. Will continue to trend WBC. Patient had blood cultures redrawn and will await results. Code(s): D72.829 - ELEVATED WHITE BLOOD CELL COUNT, UNSPECIFIED <DEYVI VÁSQUEZ - Last Filed: 07/23/19 11:52>
[2019-07-23] MEDS: Nystatin SUSPENSION 60 ML PO SCH ×3 (12:56→22:05)
[2019-07-23] MEDS ORDERED: TYLENOL 325 MG PO PRN (13:40)
[2019-07-23] MEDS: INTRALIPID 20% 250 ML 250 ML, TPN Electrolytes 20 ML, Multitrace-4 Conc Vial 1 ML*** 1 ... IV SCH ×6 (16:14)
[2019-07-23 18:03] LABS: Hematocrit 30.6 % (42-50); Hemoglobin 10.3 gm/dl (12.5-18.0)
--- NOTE | 2019-07-23 19:05 | XRAY ---
Indication: PICC line placement. Comparison: July 20, 2019. Portable chest demonstrates new left arm PICC line with the tip projecting over the SVC right atrium junction. Remaining chest unchanged again with bibasilar atelectasis/effusions and right hemidiaphragm elevation. Heart is not enlarged. No new cardiopulmonary abnormalities. Comment: Preliminary interpretation was made by C. No discrepancy.
[2019-07-23] MEDS: Zanaflex 4 MG PO SCH (22:04)
[2019-07-23] MEDS: ZOCOR 20MG PO SCH (22:05)
[2019-07-23] MEDS: LEVOFLOXACIN 750MG/150ML D5W 750 MG/150 ML BAG IV SCH (22:55)
[2019-07-24] MEDS: FLAGYL 500 MG IVPB 500 MG/100 ML BAG IV SCH ×3 (02:18→17:24)
[2019-07-24] MEDS: OMNIPEN 1GM / NaCl 100ML 100 ML IV SCH ×3 (06:17→21:47)
[2019-07-24] MEDS: DUONEB 0.5-3 MG/3 ml Neb IH SCH ×4 (06:53→18:41)
[2019-07-24 08:48] LABS: Hematocrit 29.8 % (42-50); Hemoglobin 10.1 gm/dl (12.5-18.0); Mean Cell Volume 89.8 fl (78-100); Mean Corpuscular Hemoglobin 30.4 pg (26-32); Mean Corpuscular Hgb Concent. 33.9 g/dl (32-36); Mean Platelet Volume 9.7 fl (6-9.5); Platelet Count 398 K/mm3 (150-450); Red Blood Count 3.32 M/mm3 (4.1-5.6); Red Cell Distribution Width 14.7 % (11.5-14.0); White Blood Count 15.8 K/mm3 (4.0-10.5)
[2019-07-24 09:01] LABS: ANION GAP 9.1 MEQ/L (5-15); BLOOD UREA NITROGEN 14 mg/dL (9-20); CHLORIDE 109 mmol/L (98-107); Calcium 8.5 mg/dL (8.4-10.2); Carbon Dioxide 24 mmol/L (22-30); Creatinine 1 0.58 mg/dL (0.66-1.25); Glucose 127 mg/dL (74-106); Potassium 3.3 mmol/L (3.5-5.1); SODIUM 139 mmol/L (137-145)
[2019-07-24] MEDS: Nystatin SUSPENSION 60 ML PO SCH ×4 (10:08→21:47)
[2019-07-24] MEDS: PROTONIX 40 MG IV IV SCH (10:08)
[2019-07-24] MEDS: Cozaar 50 MG PO SCH (10:09)
[2019-07-24] MEDS: Mucinex 600MG ER Tabs PO SCH ×2 (10:09→21:47)
[2019-07-24] MEDS: hydroDIURIL 25 MG PO SCH (10:09)
[2019-07-24] MEDS: Flomax 0.4 MG PO SCH (10:10)
[2019-07-24 10:14] LABS: Eosinophil 1 % (0.00-3.0); Lymphocytes 13 % (24-44); Monocyte 5 % (0.0-12.0); Neutrophils 81 % (36.-66.); Platelet Estimate NORMAL (NORMAL); Total Cells Counted 100
[2019-07-24 10:15] LABS: ANISOCYTOSIS 1+; Hypersegmented Polys 1+; Polychromasia 1+
[2019-07-24] MEDS ORDERED: Klor Con 10 MEQ PO ONE (10:21)
[2019-07-24] MEDS: ECOTRIN 81 MG PO SCH (10:39)
[2019-07-24] MEDS: ENOXAPARIN SODIUM SQ SCH (10:40)
--- NOTE | 2019-07-24 14:52 | PCM.NOTE ---
Date and Time: 07/24/19 1447 Subjective Assessment: 63 yr old male seen and examined this am. Patient reports that he feels much better today. He has had decreased frequency of diarrhea and his stools are now green in color. He is tolerating more PO intake including pudding Boost and other soft diet items. He denies any SOB CP or abdominal pain. Patient reports that he has been urinating ok today. He reports that his swelling in his hands has decreased significantly. No other reported concerns. <DEYVI VÁSQUEZ - Last Filed: 07/24/19 15:05> Date and Time: 08/01/19 1634 Subjective Assessment: Agree with A&P. <ADAIR BREWER - Last Filed: 08/01/19 16:34> - Review of Systems Constitutional: Other (Patient reports overall improvement of symptoms) Eyes: No Vision Changes, No Double Vision Respiratory: Short Of Breath (Only short of breath with ambulation), No Cough Cardiac: Edema (improving), No Chest Pain Abdominal/Gastrointestinal: No Abdominal Pain, No Nausea, No Vomiting, No Diarrhea, No Constipation Genitourinary Symptoms: No Dysuria Musculoskeletal: Back Pain Neurological: No Vertigo Hematologic/Lymphatic: Anemia <DEYVI VÁSQUEZ - Last Filed: 07/24/19 15:05> Objective Exam General Appearance: no apparent distress Neurologic Exam: alert, oriented x 3, cooperative, normal mood/affect Skin Exam: normal color, warm, dry Eye Exam: eyes nml inspection, pale conjunctivae Ears, Nose, Throat Exam: moist mucous membranes Neck Exam: normal inspection Respiratory Exam: normal breath sounds, lungs clear Cardiovascular Exam: regular rate/rhythm, normal heart sounds Gastrointestinal/Abdomen Exam: soft, other (Cherelle being removed during physical exam this am. Patient has DOM drain with minimal serous blood tinged drainage) Extremity Exam: No pedal edema <DEYVI VÁSQUEZ - Last Filed: 07/24/19 15:05> OBJECTIVE DATA Vital Signs: Vital Signs - 24 hr Temp Pulse Resp BP Pulse Ox 07/24/19 12:00 98.2 F 83 18 125/62 94 L 07/24/19 10:49 79 16 95 07/24/19 08:00 16 07/24/19 07:50 98.6 F 84 16 120/55 97 07/24/19 06:57 84 16 97 07/24/19 04:00 98.4 F 79 18 113/61 96 07/24/19 00:00 98.7 F 87 18 119/61 96 07/23/19 20:00 98.2 F 92 H 19 127/56 96 07/23/19 18:54 96 07/23/19 18:49 85 18 96 07/23/19 16:00 98.1 F 82 18 128/62 96 07/23/19 15:28 89 18 93 L Oxygen-Last 24 hours O2 Percentage 2 Liters = 28% O2 Percentage 2 Liters = 28% O2 Percentage 2 Liters = 28% O2 Percentage 2 Liters = 28% O2 Percentage 2 Liters = 28% Pain Assessment - Last Documented Pain Intensity 0 Pain Scale Used 0-10 Pain Scale Intake and Output: Intake & Output 07/22/19 07/23/19 07/24/19 07/25/19 11:59 11:59 11:59 11:59 Intake Total 2964 9606 2658 Output Total 2799 4170 1505 Balance 711 -511 1153 Weight 95.1 kg 95 kg 94.8 kg Lab Results: Accuchecks Date 07/24/19 Date 07/24/19 Date 07/23/19 Date 07/23/19 Time 11:30 Time 06:00 Time 21:30 Time 17:50 Accucheck Value: 119 Accucheck Value: 151 Accucheck Value: 135 Lab Results-Last 24 Hours 07/23/19 07/24/19 07/24/19 Range/Units 17:59 08:30 08:30 WBC 15.8 H (4.0-10.5) K/mm3 RBC 3.32 L (4.1-5.6) M/mm3 Hgb 10.3 L 10.1 L (12.5-18.0) gm/dl Hct 30.6 L 29.8 L (42-50) % MCV 89.8 (78-100) fl MCH 30.4 (26-32) pg MCHC 33.9 (32-36) g/dl RDW 14.7 H (11.5-14.0) % Plt Count 398 (150-450) K/mm3 MPV 9.7 H (6-9.5) fl Segmented Neutrophils 81 H (36.-66.) % Lymphocytes (Manual) 13 L (24-44) % Monocytes (Manual) 5 (0.0-12.0) % Eosinophils (Manual) 1 (0.00-3.0) % Hypersegmented Polys 1+ Platelet Estimate NORMAL (NORMAL) RBC Morphology ABNORMAL Polychromasia 1+ Anisocytosis 1+ Sodium 139 (137-145) mmol/L Potassium 3.3 L (3.5-5.1) mmol/L Chloride 109 H (98-107) mmol/L Carbon Dioxide 24 (22-30) mmol/L Anion Gap 9.1 (5-15) MEQ/L BUN 14 (9-20) mg/dL Creatinine 0.58 L (0.66-1.25) mg/dL Estimated GFR > 60.0 ML/MIN Glucose 127 H (74-106) mg/dL Calcium 8.5 (8.4-10.2) mg/dL Radiology Exams: Radiology Procedures Category Date Time Status ABDOMEN AND PELVIS W/0 CONTRAS [CT] Stat Exams 07/22/19 15:18 Completed Portable Chest [CHEST 1 VIEW (PORTABLE)] Stat Exams 07/23/19 09:46 Completed <DEYVI VÁSQUEZ - Last Filed: 07/24/19 15:05> Vital Signs: Pain Assessment - Last Documented Pain Intensity 0 Pain Scale Used 0-10 Pain Scale <ADAIR BREWER - Last Filed: 08/01/19 16:34> Assessment/Plan (1) Anemia due to GI blood loss Status: Acute Assessment & Plan: Hgb has remained stable overnight. Patient reports stools have changed from melena to a green color. Patient does not look pale this am and is less short of breath. Will continue to hold NSAIDs and patient will need to follow up with surgery for evaluation of GI bleed by scope. Spoke to Dr Ram this am and he felt that if patient continued to improve and remain stable that he potentially could be discharge tomorrow. Dr Ram recommended resolution of leukocytosis prior to DC. Code(s): D50.0 - IRON DEFICIENCY ANEMIA SECONDARY TO BLOOD LOSS (CHRONIC) (2) Distended bladder Status: Acute Assessment & Plan: This appears to be a chronic problem for patient due to enlarged prostate. Patient will need to follow up with urologist Dr Guidry on an outpatient basis to address this problem. Patient has had good output overnight so no straight cath was performed today. Code(s): N32.89 - OTHER SPECIFIED DISORDERS OF BLADDER (3) Diarrhea Status: Acute Assessment & Plan: Potentially related to an acute colitis non cdiff origin. Patient has had fewer episodes and describes a more formed stool. Will continue to monitor. Code(s): R19.7 - DIARRHEA, UNSPECIFIED (4) Elevated WBC count Status: Acute Assessment & Plan: Unknown etiology. Patient's wbc is trending down. Had been staying around 19-20 but has trended down to 15. Will get repeat in am. Repeat cultures still pending. Code(s): D72.829 - ELEVATED WHITE BLOOD CELL COUNT, UNSPECIFIED (5) Low oxygen saturation Status: Acute Assessment & Plan: Patient has required oxygen during hospital admission. This could be due to anemia from GI blood loss. We will be weening patient as tolerated. Code(s): R79.81 - ABNORMAL BLOOD-GAS LEVEL (6) Hypokalemia due to excessive gastrointestinal loss of potassium Status: Acute Assessment & Plan: Repleted potassium. Will get repeat BMP in am Code(s): E87.6 - HYPOKALEMIA <DEYVI VÁSQUEZ - Last Filed: 07/24/19 15:05>
[2019-07-24] MEDS: Zanaflex 4 MG PO SCH (21:47)
[2019-07-24] MEDS: ZOCOR 20MG PO SCH (21:47)
[2019-07-24] MEDS: LEVOFLOXACIN 750MG/150ML D5W 750 MG/150 ML BAG IV SCH (22:20)
[2019-07-25] MEDS: FLAGYL 500 MG IVPB 500 MG/100 ML BAG IV SCH ×3 (02:11→18:28)
[2019-07-25 05:08] LABS: Hematocrit 28.4 % (42-50); Hemoglobin 9.5 gm/dl (12.5-18.0); Mean Cell Volume 90.2 fl (78-100); Mean Corpuscular Hgb Concent. 33.5 g/dl (32-36); Mean Platelet Volume 10.1 fl (6-9.5); Platelet Count 445 K/mm3 (150-450); Red Blood Count 3.15 M/mm3 (4.1-5.6); Red Cell Distribution Width 14.9 % (11.5-14.0); White Blood Count 13.3 K/mm3 (4.0-10.5)
[2019-07-25 05:10] LABS: Mean Corpuscular Hemoglobin 30.1 pg (26-32)
[2019-07-25] MEDS: OMNIPEN 1GM / NaCl 100ML 100 ML IV SCH ×3 (05:23→20:53)
[2019-07-25 05:32] LABS: ALBUMIN 2.6 g/dL (3.5-5.0); ANION GAP 9.1 MEQ/L (5-15); BLOOD UREA NITROGEN 11 mg/dL (9-20); CHLORIDE 109 mmol/L (98-107); Calcium 8.2 mg/dL (8.4-10.2); Carbon Dioxide 25 mmol/L (22-30); Creatinine 1 0.61 mg/dL (0.66-1.25); Glucose 92 mg/dL (74-106); MAGNESIUM 1.9 mg/dL (1.6-2.3); Potassium 3.7 mmol/L (3.5-5.1); SODIUM 139 mmol/L (137-145); Total Protein 5.4 g/dL (6.3-8.2)
[2019-07-25 07:13] LABS: ANISOCYTOSIS 1+; BAND 1 % (0.0-2.0); Lymphocytes 8 % (24-44); Monocyte 4 % (0.0-12.0); Neutrophils 87 % (36.-66.); Platelet Estimate NORMAL (NORMAL); Polychromasia 1+; Total Cells Counted 100; Toxic Granulation 1+
[2019-07-25] MEDS: DUONEB 0.5-3 MG/3 ml Neb IH SCH ×4 (07:18→19:23)
[2019-07-25] MEDS: Mucinex 600MG ER Tabs PO SCH ×2 (09:47→20:54)
[2019-07-25] MEDS: Cozaar 50 MG PO SCH (09:47)
[2019-07-25] MEDS: hydroDIURIL 25 MG PO SCH (09:47)
[2019-07-25] MEDS: ECOTRIN 81 MG PO SCH (09:48)
[2019-07-25] MEDS: Flomax 0.4 MG PO SCH (09:48)
[2019-07-25] MEDS: Nystatin SUSPENSION 60 ML PO SCH ×4 (09:49→21:05)
[2019-07-25] MEDS: PROTONIX 40 MG IV IV SCH (09:58)
[2019-07-25] MEDS: ENOXAPARIN SODIUM SQ SCH (10:02)
[2019-07-25] MEDS: ZOCOR 20MG PO SCH (20:53)
[2019-07-25] MEDS: Zanaflex 4 MG PO SCH (20:56)
[2019-07-25] MEDS: LEVOFLOXACIN 750MG/150ML D5W 750 MG/150 ML BAG IV SCH (22:10)
[2019-07-26] MEDS: FLAGYL 500 MG IVPB 500 MG/100 ML BAG IV SCH ×3 (01:30→17:40)
[2019-07-26] MEDS: OMNIPEN 1GM / NaCl 100ML 100 ML IV SCH ×3 (05:30→21:41)
[2019-07-26] MEDS: DUONEB 0.5-3 MG/3 ml Neb IH SCH ×4 (06:37→18:43)
[2019-07-26 08:28] LABS: Hematocrit 30.1 % (42-50); Mean Cell Volume 89.9 fl (78-100); Mean Corpuscular Hgb Concent. 33.2 g/dl (32-36); Mean Platelet Volume 9.4 fl (6-9.5); Platelet Count 461 K/mm3 (150-450); Red Blood Count 3.35 M/mm3 (4.1-5.6); Red Cell Distribution Width 14.9 % (11.5-14.0); White Blood Count 13.1 K/mm3 (4.0-10.5)
[2019-07-26 08:29] LABS: Mean Corpuscular Hemoglobin 29.8 pg (26-32)
[2019-07-26 09:07] LABS: ALBUMIN 2.8 g/dL (3.5-5.0); ALKALINE PHOSPHATASE 53 U/L (38-126); BLOOD UREA NITROGEN 12 mg/dL (9-20); CHLORIDE 110 mmol/L (98-107); Calcium 8.4 mg/dL (8.4-10.2); Carbon Dioxide 24 mmol/L (22-30); Creatinine 1 0.63 mg/dL (0.66-1.25); Glucose 93 mg/dL (74-106); Potassium 3.8 mmol/L (3.5-5.1); SGOT/AST 20 U/L (17-59); SGPT/ALT 19 U/L (0-50); SODIUM 140 mmol/L (137-145); Total Protein 5.7 g/dL (6.3-8.2)
[2019-07-26] MEDS: ECOTRIN 81 MG PO SCH (10:41)
[2019-07-26] MEDS: Cozaar 50 MG PO SCH (10:41)
[2019-07-26] MEDS: ENOXAPARIN SODIUM SQ SCH ×2 (10:42→10:57)
[2019-07-26] MEDS: Flomax 0.4 MG PO SCH (10:42)
[2019-07-26] MEDS: hydroDIURIL 25 MG PO SCH (10:43)
[2019-07-26] MEDS: Nystatin SUSPENSION 60 ML PO SCH ×4 (10:44→21:41)
[2019-07-26] MEDS: Mucinex 600MG ER Tabs PO SCH ×2 (10:44→21:41)
[2019-07-26] MEDS: PROTONIX 40 MG IV IV SCH (10:44)
--- NOTE | 2019-07-26 12:01 | XRAY ---
Exam: CT of the abdomen and pelvis with IV contrast from 07/26/2019. CTDI: 23.69 mGy. Comparison: CT of the abdomen and pelvis without IV contrast from 07/22/2019. Indication: 63-year-old male with history of recent right upper quadrant abdominal abscess. Technique: Post-IV contrast axial images were obtained through the abdomen and pelvis during automated injection of 80 cc of Isovue-370 contrast material. Delayed axial images were obtained as well. Reconstructed coronal and sagittal images were created and reviewed. Findings: A PICC line is seen with the tip pointing inferiorly within the distal SVC. I again note moderate elevation of the right hemidiaphragm with some right basilar atelectasis. Some air bronchograms are seen within the right infrahilar projection and posterior medial right lung base. It is difficult to exclude some right basilar pneumonia. However, this is unchanged. A granulomatous calcification is again seen within the medial aspect of the right posterior lung sulcus. Some other granulomatous calcifications are seen within the subcarinal region and posterior right infrahilar projection. I again see a minimal posterior right pleural effusion which is slightly decreased as compared to 07/22/2019. There is also some minimal stable focal atelectasis at the posterior aspect of the left lung base adjacent to the left hemidiaphragm. This appears similar to 07/22/2019. I again see a pigtail catheter entering anteriorly within an abscess at the anterior medial aspect of the right upper quadrant. Small residual abscess cavity remains measuring about 3.4 cm in width and 2.0 cm in AP depth on axial image #31 of series #2. This measures about 4.2 cm greatest in length on coronal image #32. I don't believe this represents a significant change from 07/22/2019. The margins of the small abscess cavity are better seen on today's post-IV contrast study as compared to the prior non-IV contrast study. I again note a mild amount of fluid with loculated free air at the anterior lateral aspect of the right upper quadrant on axial images #14 through #23. I believe this is similar to the non-IV contrast study. This may reflect postoperative changes. Continued follow-up is recommended. I note surgical clips within the subhepatic space, apparently due to recent cholecystectomy. The remainder of the liver appears unremarkable. The spleen is of normal size and reveals no mass. The pancreas appears unremarkable. The adrenal glands appear unremarkable. Some excreted contrast is seen within both upper collecting systems. No renal mass or hydronephrosis is seen. No obstructive uropathy is seen. Some mild atherosclerotic calcification is seen within the mid and distal abdominal aorta. No abdominal aortic aneurysm is seen. No abnormal retroperitoneal lymphadenopathy is seen. The remainder of the anterior abdominal wall appears unremarkable. The urinary bladder is again significantly distended extending up to mid L4 representing no significant change from 07/22/2019. On sagittal image #84, it measures 17.1 cm in greatest craniocaudal length and 8.8 cm in AP depth. It measures 11.6 cm in width on axial image #4. Correlate clinically. The seminal vesicles and prostate gland appear unremarkable. Some small calcified phleboliths are seen within the lower pelvis bilaterally. Some incidental scattered uncomplicated colonic diverticula are seen. I see no findings of acute diverticulitis. There is no free fluid in the pelvis. Pelvic lymph nodes are not enlarged. The skeleton reveals no acute fracture or aggressive bone lesion. There is slight convexity of the upper lumbar spine toward the right and the lower lumbar spine toward the left. There is mild chronic anterior wedging of the L1 vertebral body which is unchanged. Mild generalized degenerative disc disease is seen throughout the lower thoracic spine. I also note moderate to marked degenerative disc disease at L4-L5 and marked degenerative disc disease at L5-S1 representing no change. Mild facet joint arthropathy is seen at L4-L5 and L5-S1. Impression: 1. I again see a pigtail catheter within a small abscess at the anterior medial aspect of the right upper quadrant. I don't believe this has changed appreciably in size as compared to 07/22/2019. 2. The patient is status post cholecystectomy. Some remaining fluid mixed with air is seen anterior laterally within the right upper quadrant. This does not appear to be significantly changed from 07/22/2019 and may represent postsurgical changes. Correlate clinically. 3. Prior small posterior right pleural effusion has decreased some representing improvement. However, I still note patchy bibasilar atelectasis, right greater than left. Correlate clinically to exclude pneumonia at the right lung base, as I see some air bronchograms. Again, this is not changed. 4. There is marked distention of the urinary bladder, as described above. Consider passage of a Dela Cruz catheter if the patient is unable to void. 5. No other acute process is seen within the abdomen or pelvis.
[2019-07-26] MEDS: Zanaflex 4 MG PO SCH (21:41)
[2019-07-26] MEDS: ZOCOR 20MG PO SCH (21:41)
[2019-07-27] MEDS: FLAGYL 500 MG IVPB 500 MG/100 ML BAG IV SCH ×2 (01:20→10:00)
[2019-07-27] MEDS: OMNIPEN 1GM / NaCl 100ML 100 ML IV SCH (06:08)
[2019-07-27 06:22] LABS: Hematocrit 29.8 % (42-50); Hemoglobin 9.9 gm/dl (12.5-18.0); Mean Cell Volume 90.9 fl (78-100); Mean Corpuscular Hgb Concent. 33.2 g/dl (32-36); Mean Platelet Volume 9.3 fl (6-9.5); Platelet Count 467 K/mm3 (150-450); Red Blood Count 3.28 M/mm3 (4.1-5.6); Red Cell Distribution Width 15.1 % (11.5-14.0)
[2019-07-27 06:29] LABS: Mean Corpuscular Hemoglobin 30.1 pg (26-32)
[2019-07-27 06:41] LABS: ALBUMIN 2.7 g/dL (3.5-5.0); ALKALINE PHOSPHATASE 57 U/L (38-126); ANION GAP 8.9 MEQ/L (5-15); BLOOD UREA NITROGEN 14 mg/dL (9-20); CHLORIDE 110 mmol/L (98-107); Calcium 8.4 mg/dL (8.4-10.2); Carbon Dioxide 24 mmol/L (22-30); Glucose 89 mg/dL (74-106); MAGNESIUM 2.1 mg/dL (1.6-2.3); Potassium 4.1 mmol/L (3.5-5.1); SGOT/AST 24 U/L (17-59); SGPT/ALT 18 U/L (0-50); SODIUM 140 mmol/L (137-145); Total Protein 5.5 g/dL (6.3-8.2)
[2019-07-27] MEDS: DUONEB 0.5-3 MG/3 ml Neb IH SCH ×2 (06:49→10:45)
[2019-07-27 08:27] LABS: ATYPICAL LYMPHS 1 %; BAND 2 % (0.0-2.0); Eosinophil 3 % (0.00-3.0); Lymphocytes 5 % (24-44); Monocyte 2 % (0.0-12.0); Neutrophils 87 % (36.-66.); Total Cells Counted 100
[2019-07-27 08:28] LABS: Platelet Estimate INCREASED (NORMAL); Polychromasia 1+
[2019-07-27 08:29] LABS: Granulocyte Absolute (ANC) 10.7 (1.4-6.9)
[2019-07-27] MEDS: Cozaar 50 MG PO SCH (09:58)
[2019-07-27] MEDS: ECOTRIN 81 MG PO SCH (09:58)
[2019-07-27] MEDS: ENOXAPARIN SODIUM SQ SCH (09:59)
[2019-07-27] MEDS: Mucinex 600MG ER Tabs PO SCH (10:00)
[2019-07-27] MEDS: Flomax 0.4 MG PO SCH (10:00)
[2019-07-27] MEDS: hydroDIURIL 25 MG PO SCH (10:03)
[2019-07-27] MEDS: Nystatin SUSPENSION 60 ML PO SCH (10:05)
[2019-07-27] MEDS: PROTONIX 40 MG IV IV SCH (10:06)
[2019-07-27 12:51] VITALS: BP 134/70; PULSE 91; O2SAT 92
--- NOTE | 2019-07-29 11:27 | DS ---
DISCHARGE DIAGNOSIS: 1. CHOLECYSTITIS. 2. ATRIAL FIBRILLATION. 3. PNEUMONIA. 4. ABSCESS RIGHT UPPER QUADRANT. 5. EFFUSION OF THE KNEE. BRIEF HISTORY: The patient is a 63 y/o WM patient who began having problems with right upper quadrant abdominal pain. He had been seen and was scheduled to have cholecystectomy. The patient had episode of atrial fibrillation flutter just prior to surgery which delayed his surgical procedure. He had been placed on IV antibiotics at that time. The heart situation settled down nicely with just a little metoprolol and he was able to have the surgery. However, the patient, postoperatively, had a long drawn out course of continuing to be with significant WBC elevations and minor fever, however. We did a CT scan at one point which did show some right upper quadrant fluid which according to the radiologist was concerning for abscess formation. Therefore, a catheter was placed and drained only serosanguinous fluid. The patient also had an episode of some blood stools. We did test for Clostridium difficile which was negative. The patient maintained on Levaquin, Zosyn, and Flagyl during his stay and his WBC very slowly reduced from 20,000 to the day of discharge it was down to 12,000. The patient was feeling and looking much better by that time. His most recent labs showed his glucose to be 89 fasting, BUN 14, creatinine 0.7. Electrolytes were normal. Liver enzymes were normal. Protein was somewhat low at 5.5. His WBC was 12,000, his Hgb was 9.9, and platelet count was 467,000. After discussion with the pharmacy, it was felt the patient was appropriate to be discharged home on Augmentin 875 bid and follow-up with surgery and myself in the office. He does still at this time have a DOM drain in the right upper quadrant which will be managed by surgery as far as deciding when it will come out. The patient also has a peripherally inserted central catheter line in his left arm and he wishes to keep that for the next week as we monitor his progress at home to be sure once we have discontinued all the antibiotics that he doesn't have a regression again in his health. The patient will otherwise be on his usual home medications.
== END 2019-07-27 14:10 | disposition home or self-care (01) | DRG 417 ==
LOC: ED 14:13 → MED SURG 17:05
PROVIDERS: ADMIT Family Medicine; ATTEND Family Medicine
PROC: 0FT44ZZ Resection of Gallbladder, Percutaneous Endoscopic Approach (ICD-10-PCS; principal; 2019-07-13)
DX: K81.0 Acute cholecystitis (principal); J18.9 Pneumonia, unspecified organism; J90 Pleural effusion, not elsewhere classified; J98.11 Atelectasis; D62 Acute posthemorrhagic anemia; K82.A1 Gangrene of gallbladder in cholecystitis; I10 Essential (primary) hypertension; E78.00 Pure hypercholesterolemia, unspecified; Z79.899 Other long term (current) drug therapy; J44.9 Chronic obstructive pulmonary disease, unspecified; R09.02 Hypoxemia; Z98.890 Other specified postprocedural states; R94.31 Abnormal electrocardiogram [ECG] [EKG]; I08.1 Rheumatic disorders of both mitral and tricuspid valves; I48.91 Unspecified atrial fibrillation; E78.5 Hyperlipidemia, unspecified; M25.562 Pain in left knee; M25.462 Effusion, left knee; K59.00 Constipation, unspecified; R33.9 Retention of urine, unspecified; R19.7 Diarrhea, unspecified; D72.829 Elevated white blood cell count, unspecified; N40.1 Benign prostatic hyperplasia with lower urinary tract symptoms; N32.89 Other specified disorders of bladder; R79.81 Abnormal blood-gas level; E87.6 Hypokalemia
CPT/HCPCS: 36000; 36415; 36430; 36569; 36600; 49405; 71045; 71046; 71250; 74176; 74177; 76705; 80048; 80053; 80202; 81001; 82040; 82150; 82270; 82272; 82375; 82803; 82962; 83605; 83690; 83735; 83880; 84155; 84484; 84550; 85014; 85018; 85025; 85027; 86850; 86900; 86901; 86922; 87040; 87070; 87493; 88304; 93005; 93971; 94150; 94640; 94667; 94668; 94760; 94762; 96360; 96361; 96374; 96375; 99285; J0290; J0330; J0456; J0694; J1100; J1170; J1642; J1650; J1885; J1940; J1956; J2250; J2270; J2405; J2543; J2704; J3010; J3370; J3480; P9016; Q0162; Q3014; A9270-GY